=== PATIENT | male | born 1970 | race African-American/Black ===

== ENCOUNTER 2022-02-17 08:08 | Outpatient (REF) | payer OTHER, SELFPAY ==
[2022-02-17 09:30] LABS: Alanine Aminotransferase 48 U/L (0-40); Albumin Level 4.4 g/dL (3.5-5.0); Alkaline Phosphatase 42 U/L (39-117); Anion Gap 14 (12-20); Aspartate Amino Transferase 28 U/L (5-37); Bilirubin Total 0.2 mg/dL (0.0-1.0); Blood Urea Nitrogen 22 mg/dL (9-16); Calcium 9.4 mg/dL (8.4-10.2); Carbon Dioxide 28 mmol/L (22-29); Chloride 100 mmol/L (96-108); Cholesterol 185 mg/dL; Estimated Glomerular Filt Rate > 60; Glucose Fasting 106 mg/dL (60-99); HDL Cholesterol 31 mg/dL; Potassium 4.4 mmol/L (3.3-5.1); Sodium 138 mmol/L (135-145); Total Protein 7.4 g/dL (6.5-8.0); Triglycerides 481 mg/dL
[2022-02-17 10:43] LABS: Creatinine Urine 239.44 mg/dL; Microalbum/Creatinine Ratio Ur 4.1 ug/mg cr
== END 2022-02-17 08:09 | disposition home or self-care (01) ==
LOC: HO.LAB 08:08
PROVIDERS: PCP Internal Medicine; Visit Provider Internal Medicine
DX: Z00.00 Encounter for general adult medical examination without abnormal findings (principal); E78.5 Hyperlipidemia, unspecified; E11.9 Type 2 diabetes mellitus without complications
CPT/HCPCS: 36415; 80053; 80061; 82043

== ENCOUNTER 2022-07-13 08:27 | Outpatient (REF) | payer OTHER, SELFPAY ==
--- NOTE | ~2022-07-13 | XR_ITS ---
EXAMINATION: XR HIP, LEFT , CLINICAL INFORMATION: Pain COMPARISON: None available at the time of this dictation. TECHNIQUE: Frontal and lateral views of the hip acquired. , AP pelvis FINDINGS: There is no evidence of acute fracture or dislocation. There are mild degenerative arthritic changes of the hip evident by sclerotic changes of the acetabular roof and narrowing of the joint space. Mild degenerative changes of the symphysis pubis. Mild degenerative changes of the SI joints. Adjacent pubic rami are intact. Surrounding soft tissues are unremarkable. XR/XR hip LT min 2V IMPRESSION: Mild degenerative osteoarthritis. No radiographic evidence of a fracture. No radiographic evidence of osteolytic bone lesion. .
[2022-07-13 09:47] LABS: Estimated Average Glucose 143 mg/dL; Hemoglobin A1c % 6.6 %
[2022-07-13 10:18] LABS: Alanine Aminotransferase 55 U/L (0-40); Albumin Level 4.5 g/dL (3.5-5.0); Alkaline Phosphatase 52 U/L (39-117); Anion Gap 14 (12-20); Aspartate Amino Transferase 32 U/L (5-37); Bilirubin Total 0.3 mg/dL (0.0-1.0); Blood Urea Nitrogen 18 mg/dL (9-16); Calcium 9.7 mg/dL (8.4-10.2); Carbon Dioxide 28 mmol/L (22-29); Chloride 103 mmol/L (96-108); Cholesterol 144 mg/dL; Estimated Glomerular Filt Rate > 60; Glucose Fasting 100 mg/dL (60-99); HDL Cholesterol 38 mg/dL; LDL Cholesterol Calculated 78 mg/dl; Potassium 4.7 mmol/L (3.3-5.1); Sodium 140 mmol/L (135-145); Total Protein 7.3 g/dL (6.5-8.0); Triglycerides 142 mg/dL
[2022-07-13 11:10] LABS: Creatinine Urine 167.34 mg/dL; Microalbum/Creatinine Ratio Ur 4.7 ug/mg cr
== END 2022-07-13 08:28 | disposition home or self-care (01) ==
LOC: HO.LAB 08:27
PROVIDERS: PCP Internal Medicine; Visit Provider Internal Medicine
DX: M25.552 Pain in left hip (principal); E11.9 Type 2 diabetes mellitus without complications; E78.5 Hyperlipidemia, unspecified; E11.40 Type 2 diabetes mellitus with diabetic neuropathy, unspecified; I10 Essential (primary) hypertension
CPT/HCPCS: 36415; 73502; 80053; 80061; 82043; 83036

== ENCOUNTER 2022-11-17 08:06 | Outpatient (AMB) | payer OTHER, SELFPAY ==
--- NOTE | 2022-11-17 08:23 | MHC.PC.OV ---
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 Accompanied by: Self / Same As Patient Allergies lisinopril Adverse Reaction (Severe, Verified 11/17/22 08:49) rash, cough, itchy throat Medication List - Last Reconciled 11/17/22 by Viji Chacon MD amlodipine 5 mg PO DAILY 90 days atorvastatin 10 mg PO DAILY 90 days blood sugar diagnostic (FreeStyle Lite Strips) As directed lancets (FreeStyle Lancets) As directed metformin ER 500 mg PO BID 90 days miscellaneous medical supply (Blood Pressure Cuff) As directed omeprazole 20 mg PO DAILY 90 days Tobacco use date assessed: 07/13/22 Dental Screening Dental Screen Date: 11/17/22 Did you have a dental visit in the last 12 months?: No Did you have a dental problem in the last 6 months where you did not have access to dental care?: No Was dental information given to patient?: Yes HPI HPI Comments History of Present Illness Details This is a 52-year-old male with diabetes mellitus type 2, hypertension, hyperlipidemia and chronic GERD that comes today for follow-up on recent labs. A1c within goal. Blood pressure borderline normal to elevated today and he has not take his amlodipine yet. Blood pressure will be recheck in 3 weeks by nurse navigator. Last LDL was within goal and lipid panel will be repeated for the next office visit. GERD stable with PPIs as needed. No chest pain or shortness of breath. [facility] Surgical History History of hand surgery Family History Mother Alzheimer disease Osteoporosis Father Diabetes Social History Housing: House Alcohol intake: never Patient Tobacco Use Status: Never used Tobacco e-Cigarette/Vaping Use: Never Used Second Hand Smoke Exposure: No service: No Current occupational status: employed Current occupational exposures/hazards: No Cognitive needs: No Hearing needs: No Vision needs: Yes Questionnaire Thrive Questionnaire Date Thrive assessed: 07/13/22 YOLIS-7 AMB Questionnaire YOLIS-7 Date YOLIS - 7 assessed: 07/13/22 Source: Developed by Drs. Stuart Walton, Amanda Mcwilliams, Marcel Mcmahon and colleagues, with an educational concepcion from [employer]. Review of Systems Const All systems reviewed & are unremarkable except as noted in HPI and below Eyes Reports no additional complaints, Denies change in vision and Denies other visual disturbances Card Denies chest pain at rest, Denies chest pain with activity, Denies edema, Denies irregular heart rhythm, Denies claudication, Denies dyspnea, Denies dyspnea on exertion, Denies orthopnea, Denies paroxysmal nocturnal dyspnea and Denies slow heart rate Resp Denies cough, Denies dyspnea and Denies dyspnea on exertion GI Denies abdominal pain, Denies change in bowel habits, Denies excessive flatus, Denies nausea and Denies vomiting Denies urinary hesitancy, Denies urinary incontinence and Denies urinary urgency Musc Denies abnormal gait, Denies atrophy, Denies deformity and Denies limited range of motion Skin/Breast Denies bleeding lesions, Denies changing lesions and Denies rash Neuro Denies abnormal gait and Denies lack of coordination Physical exam (Primary Care) Vital Signs: Last Vital Signs BP 140/90 H 11/17/22 08:25 BMI result Body Mass Index 31.2 Tobacco/Smoking Status: Tobacco use Status Tobacco use date assessed 07/13/22 11/17/22 08:24 Patient Tobacco Use Status Never used Tobacco 11/17/22 08:24 e-Cigarette/Vaping Use Never Used 11/17/22 08:24 Thrive Assessment: Date of Thrive Assessment Date Thrive assessed 07/13/22 11/17/22 08:24 Eyes General: appearance normal, both eyes and all related structures Eyelids: Yes eyelids normal Conjunctivae: conjunctivae normal Neck Neck: Yes normal visual inspection and Yes supple Resp Effort & Inspection: normal respiratory effort Auscultation: clear to auscultation bilaterally Cardio Jugular venous distension: no JVD Rate: regular rate Rhythm: regular rhythm Heart sounds: S1 normal heart sound present and S2 normal heart sound present Extrem General: Yes full ROM Results AMB Hemoglobin A1c AMB Hemoglobin A1c 6.6 % Last Edit by HUI Tarango on 11/17/22 08:32 Results Reviewed Results Reviewed: Laboratory Last Values Hgb A1c (Clinic) 6.6 % (4.0-6.0) H 11/17/22 08:29 Assessment and Plan Assessment & Plan (1) Diabetes mellitus: Code(s): E11.9 - Type 2 diabetes mellitus without complications Plan: Continue metformin. A1c goal is equal or less than 7%. (2) Essential hypertension: Code(s): I10 - Essential (primary) hypertension Plan: Continue amlodipine. Blood pressure goal is equal or less than 130/80. (3) Chronic GERD: Code(s): K21.9 - Gastro-esophageal reflux disease without esophagitis Plan: Continue PPIs as needed (4) Hyperlipidemia LDL goal <70: Code(s): E78.5 - Hyperlipidemia, unspecified Plan: Continue statins. LDL goal is less than 70. Orders: Orders Comprehensive Met. Panel 4 Months E78.5 - Hyperlipidemia, unspecified Lipid Panel 4 Months E78.5 - Hyperlipidemia, unspecified Microalbumin, Random (w Creat) 4 Months E11.9 - Type 2 diabetes mellitus without complications AMB Hemoglobin A1c Today E11.9 - Type 2 diabetes mellitus without complications Coding Level of Care Code Est Pt Level 4 (40798) Diagnoses Diabetes mellitus E11.9 Essential hypertension I10 Chronic GERD K21.9 Hyperlipidemia LDL goal <70 E78.5 Time Spent (min) 23
[2022-11-17 08:25] VITALS: BP 140/90; BMI 31.2
[2022-11-17 10:42] VITALS: BP 140/90
== END 2022-11-17 08:59 | disposition home or self-care (01) ==
PROVIDERS: PCP Internal Medicine; Visit Provider Internal Medicine
DX: E11.9 Type 2 diabetes mellitus without complications (principal); I10 Essential (primary) hypertension; K21.9 Gastro-esophageal reflux disease without esophagitis; E78.5 Hyperlipidemia, unspecified
CPT/HCPCS: 83036; 99214

== ENCOUNTER 2023-02-22 07:45 | Outpatient (REF) | payer OTHER, SELFPAY ==
[2023-02-22 08:57] LABS: Alanine Aminotransferase 50 U/L (0-40); Albumin Level 4.5 g/dL (3.5-5.0); Alkaline Phosphatase 41 U/L (39-117); Anion Gap 15 (12-20); Aspartate Amino Transferase 32 U/L (5-37); Bilirubin Total 0.4 mg/dL (0.0-1.0); Blood Urea Nitrogen 14 mg/dL (9-16); Calcium 9.6 mg/dL (8.4-10.2); Carbon Dioxide 27 mmol/L (22-29); Chloride 104 mmol/L (96-108); Cholesterol 142 mg/dL (<200); Estimated Glomerular Filt Rate > 60; Glucose Random 104 mg/dL (60-115); HDL Cholesterol 39 mg/dL (>40); LDL Cholesterol Calculated 71 mg/dL (<100); Potassium 4.1 mmol/L (3.3-5.1); Sodium 142 mmol/L (135-145); Total Protein 7.6 g/dL (6.5-8.0); Triglycerides 163 mg/dL (<150)
[2023-02-22 11:42] LABS: Creatinine Urine 133.83 mg/dL; Microalbum/Creatinine Ratio Ur 4.4 ug/mg cr (<30)
== END 2023-02-22 07:46 | disposition home or self-care (01) ==
LOC: HO.LAB 07:45
PROVIDERS: PCP Internal Medicine; Visit Provider Internal Medicine
DX: E78.5 Hyperlipidemia, unspecified (principal); E11.9 Type 2 diabetes mellitus without complications
CPT/HCPCS: 36415; 80053; 80061; 82043; 82570

== ENCOUNTER 2023-02-28 07:09 | Outpatient (AMB) | payer OTHER, SELFPAY ==
[2023-02-28 07:36] VITALS: BP 136/82; BMI 30.6
--- NOTE | 2023-02-28 07:36 | MHC.PC.OV ---
Vital Signs 02/28/23 07:36 Height 5 ft 4 in Weight 178 lb BMI 30.6 BP 136/82 Blood Pressure Location Lt brachial Position Sitting Intake Visit Reasons: PHYSICAL Intake Note: Patient here for a physical exam [employer] Director Required: No Accompanied by: Self / Same As Patient Allergies lisinopril Adverse Reaction (Severe, Verified 02/28/23 07:53) rash, cough, itchy throat Medication List - Last Reconciled 02/28/23 by Viji Chacon MD amlodipine 5 mg PO DAILY 90 days atorvastatin 10 mg PO DAILY 90 days blood sugar diagnostic (FreeStyle Lite Strips) As directed lancets (FreeStyle Lancets) As directed metformin ER 500 mg PO BID 90 days miscellaneous medical supply (Blood Pressure Cuff) As directed omeprazole 20 mg PO DAILY 90 days Tobacco use date assessed: 07/13/22 Dental Screening Dental Screen Date: 02/28/23 Did you have a dental visit in the last 12 months?: No Did you have a dental problem in the last 6 months where you did not have access to dental care?: No Was dental information given to patient?: Patient has dentist HPI HPI Comments History of Present Illness Details This is a 52-year-old male with diabetes mellitus type 2 that comes for his physical exam. A1c within goal. LDL close to goal. Last diabetic eye exam was a year ago. Has never had a colonoscopy and does not have any family history of colon cancer. Complains of diffuse joint pain with no fever or rash and will be referred to rheumatology. [facility] Surgical History History of hand surgery Family History Mother Alzheimer disease Osteoporosis Father Diabetes Social History Housing: House Alcohol intake: never Patient Tobacco Use Status: Never used Tobacco e-Cigarette/Vaping Use: Never Used Second Hand Smoke Exposure: No service: No Current occupational status: employed Current occupational exposures/hazards: No Cognitive needs: No Hearing needs: No Vision needs: Yes Questionnaire Thrive Questionnaire Date Thrive assessed: 07/13/22 YOLIS-7 AMB Questionnaire YOLIS-7 Date YOLIS - 7 assessed: 07/13/22 Source: Developed by Drs. Stuart Walton, Amanda Mcwilliams, Marcel Mcmahon and colleagues, with an educational concepcion from [employer]. Review of Systems Const All systems reviewed & are unremarkable except as noted in HPI and below Eyes Reports no additional complaints, Denies change in vision and Denies other visual disturbances Card Denies chest pain at rest, Denies chest pain with activity, Denies edema, Denies irregular heart rhythm, Denies claudication, Denies dyspnea, Denies dyspnea on exertion, Denies orthopnea, Denies paroxysmal nocturnal dyspnea and Denies slow heart rate Resp Denies cough, Denies dyspnea and Denies dyspnea on exertion GI Denies abdominal pain, Denies change in bowel habits, Denies excessive flatus, Denies nausea and Denies vomiting Denies urinary hesitancy, Denies urinary incontinence and Denies urinary urgency Musc Denies abnormal gait, Denies atrophy, Denies deformity, Reports arthralgias and Denies limited range of motion Skin/Breast Denies bleeding lesions, Denies changing lesions and Denies rash Neuro Denies abnormal gait, Denies behavioral changes, Denies confusion and Denies lack of coordination Psych Denies behavioral changes and Denies confusion Physical exam (Primary Care) Vital Signs: Last Vital Signs BP 136/82 02/28/23 07:36 BMI result Body Mass Index 30.6 Tobacco/Smoking Status: Tobacco use Status Tobacco use date assessed 07/13/22 02/28/23 07:39 Patient Tobacco Use Status Never used Tobacco 02/28/23 07:39 e-Cigarette/Vaping Use Never Used 02/28/23 07:39 Thrive Assessment: Date of Thrive Assessment Date Thrive assessed 07/13/22 02/28/23 07:39 Const General: No confusion Orientation/consciousness: patient oriented x3 and No confusion HENMT Head: Yes normal to inspection, Yes normocephalic and Yes atraumatic Ears: external ears normal Eyes General: appearance normal, both eyes and all related structures Eyelids: Yes eyelids normal Conjunctivae: conjunctivae normal Neck Neck: Yes normal visual inspection and Yes supple Resp Effort & Inspection: normal respiratory effort Auscultation: clear to auscultation bilaterally Cardio Jugular venous distension: no JVD Rate: regular rate Rhythm: regular rhythm Heart sounds: S1 normal heart sound present and S2 normal heart sound present GI Inspection: Yes normal to inspection Palpation (GI): Soft to palpation and nontender Auscultation: normal bowel sounds Skin General skin exam: no rashes or lesions noted Neuro General: patient oriented x3, no focal motor deficits and No confusion Extrem General: Yes full ROM Psych Appearance: grossly normal Office Procedures Flu Questionnaire Does the patient have a severe egg allergy?: No Results AMB Hemoglobin A1c AMB Hemoglobin A1c 6.6 % Last Edit by HUI Tarango on 02/28/23 07:50 Immunizations flu vacc [id number] 6mos up(PF) 60 mcg(15 mcgx4)/0.5 mL IM syringe Performing Provider: Viji Chacon MD [facility] Documented (not given) by: HUI Tarango on 02/28/23 07:42 Reason Not Given: Patient Refused Results Reviewed Results Reviewed: Laboratory Last Values Hgb A1c (Clinic) 6.6 % (4.0-6.0) H 02/28/23 07:42 Assessment and Plan Assessment & Plan (1) Physical exam: Code(s): Z00.00 - Encounter for general adult medical examination without abnormal findings Plan: Repeat in a year. (2) Diabetes mellitus: Code(s): E11.9 - Type 2 diabetes mellitus without complications Plan: Continue metformin. A1c goal is equal or less than 7%. Orders: Orders AMB Hemoglobin A1c Today E11.9 - Type 2 diabetes mellitus without complications Comprehensive [place]. Panel Fast 4 Months Z00.00 - Encounter for general adult medical examination without abnormal findings Influenza [id number] Immunization Today Z23 - Encounter for immunization Lipid Panel 4 Months E78.5 - Hyperlipidemia, unspecified Microalbumin, Random (w Creat) 4 Months E11.9 - Type 2 diabetes mellitus without complications Vitamin D 25-OH Total 4 Months E55.9 - Vitamin D deficiency, unspecified Referrals Cologuard Test Z12.11 - Encounter for screening for malignant neoplasm of colon, Z12.12 - Encounter for screening for malignant neoplasm of rectum Ophthalmology Referral E11.9 - Type 2 diabetes mellitus without complications Rheumatology Referral M25.50 - Pain in unspecified joint Coding Level of Care Code Est Pt Prev Care 40-64y(08190) Diagnoses Physical exam Z00.00 Diabetes mellitus E11.9 Time Spent (min) 35
== END 2023-02-28 08:01 | disposition home or self-care (01) ==
PROVIDERS: Visit Provider Internal Medicine
DX: Z00.00 Encounter for general adult medical examination without abnormal findings (principal); E11.9 Type 2 diabetes mellitus without complications
CPT/HCPCS: 83036; 99396

== ENCOUNTER 2023-05-16 10:45 | Outpatient (REF) | payer OTHER, SELFPAY ==
--- NOTE | ~2023-05-16 | XR_ITS ---
STUDY: Bilateral hands, lumbar spine, SI series INDICATION: Bilateral hand and back pain COMPARISON: None TECHNIQUE: 4 view right hand, 5 view left hand, 5 view lumbar spine, three-view SI series FINDINGS: Right hand: Mild degenerative change first carpometacarpal joint. These mild interphalangeal joint space narrowings. Radiocarpal joint space narrowing and sclerosis. Alignment maintained. No fracture or dislocation. No bony erosions. No focal soft tissue swelling. Left hand: Diffuse interphalangeal joint space narrowings and mild degenerative changes first carpometacarpal joint. Radiocarpal sclerosis and joint space narrowing. No fracture, dislocation or bony erosions. Alignment is maintained. Lumbar spine: 5 lumbar type vertebral bodies are maintained in height. Lumbar lordotic straightening. Mild L5-S1 disc space narrowing. No spondylolysis or spondylolisthesis pedicles are intact. SI series: Very mild SI sclerosis left and inferior right joints, better appreciated on lumbar spine series. No hip joint narrowings. No fracture or dislocation. XR/XR hand wrist RT IMPRESSION: Degenerative changes bilateral hands. Lumbar lordotic straightening and mild L5-S1 disc space narrowing. Very mild, slightly asymmetric bilateral SI sclerosis.
--- NOTE | ~2023-05-16 | XR_ITS ---
STUDY: Bilateral hands, lumbar spine, SI series INDICATION: Bilateral hand and back pain COMPARISON: None TECHNIQUE: 4 view right hand, 5 view left hand, 5 view lumbar spine, three-view SI series FINDINGS: Right hand: Mild degenerative change first carpometacarpal joint. These mild interphalangeal joint space narrowings. Radiocarpal joint space narrowing and sclerosis. Alignment maintained. No fracture or dislocation. No bony erosions. No focal soft tissue swelling. Left hand: Diffuse interphalangeal joint space narrowings and mild degenerative changes first carpometacarpal joint. Radiocarpal sclerosis and joint space narrowing. No fracture, dislocation or bony erosions. Alignment is maintained. Lumbar spine: 5 lumbar type vertebral bodies are maintained in height. Lumbar lordotic straightening. Mild L5-S1 disc space narrowing. No spondylolysis or spondylolisthesis pedicles are intact. SI series: Very mild SI sclerosis left and inferior right joints, better appreciated on lumbar spine series. No hip joint narrowings. No fracture or dislocation. XR/XR hand wrist LT IMPRESSION: Degenerative changes bilateral hands. Lumbar lordotic straightening and mild L5-S1 disc space narrowing. Very mild, slightly asymmetric bilateral SI sclerosis.
--- NOTE | ~2023-05-16 | XR_ITS ---
STUDY: Bilateral hands, lumbar spine, SI series INDICATION: Bilateral hand and back pain COMPARISON: None TECHNIQUE: 4 view right hand, 5 view left hand, 5 view lumbar spine, three-view SI series FINDINGS: Right hand: Mild degenerative change first carpometacarpal joint. These mild interphalangeal joint space narrowings. Radiocarpal joint space narrowing and sclerosis. Alignment maintained. No fracture or dislocation. No bony erosions. No focal soft tissue swelling. Left hand: Diffuse interphalangeal joint space narrowings and mild degenerative changes first carpometacarpal joint. Radiocarpal sclerosis and joint space narrowing. No fracture, dislocation or bony erosions. Alignment is maintained. Lumbar spine: 5 lumbar type vertebral bodies are maintained in height. Lumbar lordotic straightening. Mild L5-S1 disc space narrowing. No spondylolysis or spondylolisthesis pedicles are intact. SI series: Very mild SI sclerosis left and inferior right joints, better appreciated on lumbar spine series. No hip joint narrowings. No fracture or dislocation. XR/XR lumbar spine 4V min IMPRESSION: Degenerative changes bilateral hands. Lumbar lordotic straightening and mild L5-S1 disc space narrowing. Very mild, slightly asymmetric bilateral SI sclerosis.
--- NOTE | ~2023-05-16 | XR_ITS ---
STUDY: Bilateral hands, lumbar spine, SI series INDICATION: Bilateral hand and back pain COMPARISON: None TECHNIQUE: 4 view right hand, 5 view left hand, 5 view lumbar spine, three-view SI series FINDINGS: Right hand: Mild degenerative change first carpometacarpal joint. These mild interphalangeal joint space narrowings. Radiocarpal joint space narrowing and sclerosis. Alignment maintained. No fracture or dislocation. No bony erosions. No focal soft tissue swelling. Left hand: Diffuse interphalangeal joint space narrowings and mild degenerative changes first carpometacarpal joint. Radiocarpal sclerosis and joint space narrowing. No fracture, dislocation or bony erosions. Alignment is maintained. Lumbar spine: 5 lumbar type vertebral bodies are maintained in height. Lumbar lordotic straightening. Mild L5-S1 disc space narrowing. No spondylolysis or spondylolisthesis pedicles are intact. SI series: Very mild SI sclerosis left and inferior right joints, better appreciated on lumbar spine series. No hip joint narrowings. No fracture or dislocation. XR/XR sacroiliac joint min 3V IMPRESSION: Degenerative changes bilateral hands. Lumbar lordotic straightening and mild L5-S1 disc space narrowing. Very mild, slightly asymmetric bilateral SI sclerosis.
[2023-05-16 12:03] LABS: MANUAL DIFF FLAG NO
[2023-05-16 12:45] LABS: Basophils Percent Auto 0.8 % (0-2); Eosinophils Absolute Auto 0.2 X10*3/uL (0.0-0.4); Hematocrit 47.5 % (42.0-52.0); Hemoglobin 15.6 g/dl (14.0-18.0); Imm Gran Abs Auto 0.01 X10*3/uL (0.00-0.03); Imm Gran Pct Auto 0.2 % (0.0-0.4); Lymphocytes Absolute Auto 2.6 X10*3/uL (1.2-4.9); Lymphocytes Percent Auto 52.6 % (20-40); Mean Corpuscular HGB Conc 32.8 g/dl (31.0-36.0); Mean Corpuscular Hemoglobin 28.4 pg (27.0-33.0); Mean Corpuscular Volume 86.4 fL (80.0-98.0); Mean Platelet Volume 9.2 fL (9.4-12.4); Monocytes Absolute Auto 0.3 X10*3/uL (0.1-1.2); Monocytes Percent Auto 6.6 % (2-11); Neutrophils Absolute Auto 1.8 x10*3/uL (2.0-8.3); Neutrophils Percent Auto 35.8 % (45-73); Platelet Count 282 X10*3/uL (160-400); Red Cell Distribution Width 12.7 % (11.0-16.0)
[2023-05-16 13:07] LABS: Alanine Aminotransferase 54 U/L (0-40); Albumin Level 4.8 g/dL (3.5-5.0); Alkaline Phosphatase 49 U/L (39-117); Anion Gap 13 (12-20); Aspartate Amino Transferase 34 U/L (5-37); Bilirubin Total 0.3 mg/dL (0.0-1.0); Blood Urea Nitrogen 19 mg/dL (9-16); C Reactive Protein < 0.10 mg/dL (< or = 0.50); Calcium 9.9 mg/dL (8.4-10.2); Carbon Dioxide 30 mmol/L (22-29); Chloride 102 mmol/L (96-108); Estimated Glomerular Filt Rate > 60; Glucose Random 95 mg/dL (60-115); Potassium 4.1 mmol/L (3.3-5.1); Sodium 141 mmol/L (135-145); Total Protein 8.2 g/dL (6.5-8.0)
[2023-05-16 13:10] LABS: Rheumatoid Factor < 13.0 IU/mL (<15.0)
[2023-05-16 13:30] LABS: Erythrocyte Sedimentation Rate 2 MM/HR (0-15)
[2023-05-17 12:49] LABS: Lyme Abs Screen <0.90 index
[2023-05-17 13:00] LABS: HBS Num1 13.99 mIU/mL (0-7.99); HBc Num1 0.08 S/CO (0.00-0.79); HBsAGNum1 0.33 S/CO (0.00-0.99); Hepatitis A Antibody IgM 0.18 Index (0-0.79); Hepatitis B Core Antibody Nonreactive (Nonreactive); Hepatitis B Surface Antigen Negative (Negative); ~HepC Num1 0.08 S/CO (0.00-0.79); ~Hepatitis A Antibody IgM Nonreactive (Nonreactive); ~Hepatitis B Surface Antibody REACTIVE (Nonreactive); ~Hepatitis C Antibody Nonreactive (Nonreactive)
[2023-05-18 20:24] LABS: TS Negative Control Passed; TS Panel A 0; TS Panel B 0; TS Positive Control Passed; TSpotTB Negative (Negative)
[2023-05-19 12:08] LABS: Cyclic Citrullinated Peptide <16 UNITS
[2023-05-19 12:23] LABS: Anti Nuclear Antibody Screen NEGATIVE (NEGATIVE)
[2023-05-19 15:04] LABS: Prot Elec - Albumin 4.7 g/dL (3.8-4.8); Prot Elec - Alpha1 0.2 g/dL (0.2-0.3); Prot Elec - Alpha2 0.7 g/dL (0.5-0.9); Prot Elec - Beta 1 0.5 g/dL (0.4-0.6); Prot Elec - Beta 2 0.5 g/dL (0.2-0.5); Prot Elec - Gamma 1.4 g/dL (0.8-1.7)
[2023-05-20 13:03] LABS: IgA 217 mg/dL (47-310); IgG 1524 mg/dL (600-1640); IgM 33 mg/dL (50-300)
[2023-05-21 16:42] LABS: HLA B27 Negative (Negative)
== END 2023-05-16 10:46 | disposition home or self-care (01) ==
LOC: HO.LAB 10:45
PROVIDERS: PCP Internal Medicine; Visit Provider Student in an Organized Health Care Education/Training Program
DX: Z11.59 Encounter for screening for other viral diseases (principal); Z11.7 Encounter for testing for latent tuberculosis infection; M45.9 Ankylosing spondylitis of unspecified sites in spine; M25.50 Pain in unspecified joint
CPT/HCPCS: 36415; 72110; 72202; 73110; 73130; 80053; 82784; 84165; 85025; 85652; 86038; 86140; 86200; 86334; 86431; 86481; 86617; 86618; 86704; 86706; 86709; 86803; 86812; 87340; 99202

== ENCOUNTER 2023-05-16 10:45 | Outpatient (AMB) | payer OTHER, SELFPAY ==
--- NOTE | 2023-05-16 10:47 | MHC.OFFVIS ---
Intake Vital Signs 05/16/23 10:48 Height 5 ft 4 in Weight 180 lb 15.992 oz BMI 31.1 BP 100/80 Blood Pressure Location Rt brachial Position Sitting Pulse 71 Pulse Source Pulse Oximeter Temp 97 F Temp Source Skin Pulse Oximetry (%) 97 Oxygen Delivery Method Room Air Intake Visit Reasons: Joint Pain Intake Note: New patient presents today for consult. C/o polyarthralgia (back pain, left wrist pain) Pain started approx 1 year or so. Has tried OTC arthritis pain med Inspector Watch Assembly Required: Yes Inspector Watch Assembly Language: Customer Resource Specialist Name: Mayra [id number] Information Interpreted: clinical only Accompanied by: Self / Same As Patient Allergies lisinopril Adverse Reaction (Severe, Verified 05/16/23 10:47) rash, cough, itchy throat Medication List - Last Reconciled 05/16/23 by Mitesh Kenny MD amlodipine 5 mg PO DAILY 90 days atorvastatin 10 mg PO DAILY 90 days blood sugar diagnostic (FreeStyle Lite Strips) As directed lancets (FreeStyle Lancets) As directed metformin ER 500 mg PO BID 90 days miscellaneous medical supply (Blood Pressure Cuff) As directed omeprazole 20 mg PO DAILY 90 days HPI HPI Comments History of Present Illness Details This is a 53-year-old male who presents for evaluation of multiple joint pain. He states that for about 6 years he has been having left wrist pain. 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 He states that his job is not quite physical. He works at night. He takes ibuprofen 400 mg 3-4 days a week as needed for his joint pain. He is right-handed. He states that for the last year has been having lower back pain more towards the left. Pain is also worse with activity. He denies any morning stiffness. Ibuprofen also helps. He uses a belt for his back pain that improves his back when he tightens it. [facility] Surgical History History of hand surgery Family History Mother Alzheimer disease Osteoporosis Father Diabetes Social History Household Members: Spouse and Children Housing: House Alcohol intake: former Patient Tobacco Use Status: Never used Tobacco e-Cigarette/Vaping Use: Never Used Second Hand Smoke Exposure: No service: No Current occupational status: employed Current occupation: Maintenance Current occupational exposures/hazards: No Cognitive needs: No Hearing needs: No Vision needs: Yes Review of Systems Const Denies weight loss Musc Reports back pain, Reports arthralgias, Reports joint swelling and Denies stiffness Physical Exam Vital Signs: Last Vital Signs Temp 97 F 05/16/23 10:48 Pulse 71 05/16/23 10:48 BP 100/80 05/16/23 10:48 Pulse Ox 97 05/16/23 10:48 Oxygen Delivery Method Room Air 05/16/23 10:48 BMI result Body Mass Index 31.1 Const General: cooperative, healthy appearing and comfortable Nutritional Appearance: obese Orientation/consciousness: patient oriented x3 Limitations: no limitations HEENT Head: Yes normocephalic and Yes atraumatic Resp Effort & Inspection: normal respiratory effort and able to speak in complete sentences Auscultation: clear to auscultation bilaterally Cardio Rate: regular rate Rhythm: regular rhythm Skin General skin exam: no rashes or lesions noted Neuro General: patient oriented x3 Extrem Other: Mild left wrist dorsal swelling, more radially. Tenderness to palpation and pain with flexion-extension No active synovitis otherwise Normal nailfold capillaroscopy Could not elicit any back tenderness Negative straight leg raise test bilaterally Negative ANDERS test bilaterally Normal lateral flexion test Assessment & Plan Assessment & Plan (1) Polyarthralgia: Code(s): M25.50 - Pain in unspecified joint Plan: This is a 53-year-old male who presents for evaluation of polyarthralgia. Left wrist pain for about 6 year and 1 year history of low back pain. On exam he has mild left wrist swelling. Will order comprehensive serology to screen for underlying autoimmune rheumatic disease. Check x-rays of involved joints. Follow-up in 1 month Plan I spent [id number] reviewing patient's chart, evaluating patient, ordering diagnostic workup, counseling patient and documenting in the chart Orders: Orders Comprehensive Met. Panel Today M25.50 - Pain in unspecified joint C Reactive Protein Today M25.50 - Pain in unspecified joint Erythrocyte Sedimentation Rate Today M25.50 - Pain in unspecified joint XR lumbar spine 4V min Today M25.50 - Pain in unspecified joint XR sacroiliac joint min 3V Today M25.50 - Pain in unspecified joint HLA B27 Today M45.9 - Ankylosing spondylitis of unspecified sites in spine Complete Blood Count Auto Diff Today M25.50 - Pain in unspecified joint Hepatitis A,B,C Profile Today Z11.59 - Encounter for screening for other viral diseases Immunofixation Pnl, Serum Today M25.50 - Pain in unspecified joint Protein Electrophoresis, Serum Today M25.50 - Pain in unspecified joint T Spot TB Today Z11.7 - Encounter for testing for latent tuberculosis infection NAHED Reflex Titer and Pattern Today M25.50 - Pain in unspecified joint Rheumatoid Factor Today M25.50 - Pain in unspecified joint Cyclic Citrullinated Peptide Today M25.50 - Pain in unspecified joint XR hand wrist LT Today M25.50 - Pain in unspecified joint XR hand wrist RT Today M25.50 - Pain in unspecified joint Lyme IgG/IgM w/reflex to WB Today M25.50 - Pain in unspecified joint Coding Level of Care Code New Pt Level 4 (75540) Diagnoses Polyarthralgia M25.50
[2023-05-16 10:48] VITALS: BP 100/80; PULSE 71; TEMP 36.1; O2SAT 97; BMI 31.1
== END 2023-05-16 11:36 | disposition home or self-care (01) ==
PROVIDERS: PCP Internal Medicine; Visit Provider Student in an Organized Health Care Education/Training Program
DX: M25.50 Pain in unspecified joint (principal)
CPT/HCPCS: 99204

== ENCOUNTER 2023-06-27 14:26 | Outpatient (AMB) | payer OTHER, SELFPAY ==
--- NOTE | 2023-06-27 14:34 | A.OFFVIS_ITS ---
Intake Vital Signs 06/27/23 14:35 Height 5 ft 4 in Weight 183 lb 6.793 oz BMI 31.5 BP 126/70 Blood Pressure Location Rt brachial Position Sitting Pulse 78 Pulse Source Pulse Oximeter Pulse Oximetry (%) 96 Oxygen Delivery Method Room Air Intake Visit Reasons: polyarthralgia Intake Note: Patient last seen 05/16/23 presents today for follow up and test results. Dimensional Inspector Required: Yes Dimensional Inspector Name: April Irving (Medical Assist Accompanied by: Self / Same As Patient Allergies lisinopril Adverse Reaction (Severe, Verified 06/27/23 14:40) rash, cough, itchy throat Medication List - Last Reconciled 06/27/23 by Mitesh Kenny MD amlodipine 5 mg PO DAILY 90 days atorvastatin 10 mg PO DAILY 90 days blood sugar diagnostic (FreeStyle Lite Strips) As directed lancets (FreeStyle Lancets) As directed metformin ER 500 mg PO BID 90 days miscellaneous medical supply (Blood Pressure Cuff) As directed omeprazole 20 mg PO DAILY 90 days HPI HPI Comments 2 History of Present Illness Details Patient returns for follow-up after completion of his diagnostic workup. Continues to feel about the same Initial history: This is a 53-year-old male who presents for evaluation of multiple joint pain. He states that for about 6 years he has been having left wrist pain. 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 He states that his job is not quite physical. He works at night. He takes ibuprofen 400 mg 3-4 days a week as needed for his joint pain. He is right-handed. He states that for the last year has been having lower back pain more towards the left. Pain is also worse with activity. He denies any morning stiffness. Ibuprofen also helps. He uses a belt for his back pain that improves his back when he tightens it. [facility] Surgical History History of hand surgery Family History Mother Alzheimer disease Osteoporosis Father Diabetes Social History Household Members: Spouse and Children Housing: House Alcohol intake: former Patient Tobacco Use Status: Never used Tobacco e-Cigarette/Vaping Use: Never Used Second Hand Smoke Exposure: No service: No Current occupational status: employed Current occupation: Maintenance Current occupational exposures/hazards: No Cognitive needs: No Hearing needs: No Vision needs: Yes Review of Systems Const Denies weight loss Musc Reports back pain, Reports arthralgias and Denies stiffness Physical Exam Vital Signs: Last Vital Signs Pulse 78 06/27/23 14:35 BP 126/70 06/27/23 14:35 Pulse Ox 96 06/27/23 14:35 Oxygen Delivery Method Room Air 06/27/23 14:35 BMI result Body Mass Index 31.5 Const General: cooperative, healthy appearing and comfortable Nutritional Appearance: obese Orientation/consciousness: patient oriented x3 Limitations: no limitations HEENT Head: Yes normocephalic and Yes atraumatic Resp Effort & Inspection: normal respiratory effort and able to speak in complete sentences Auscultation: clear to auscultation bilaterally Cardio Rate: regular rate Rhythm: regular rhythm Skin General skin exam: no rashes or lesions noted Neuro General: patient oriented x3 Extrem Other: Mild left wrist dorsal swelling, more radially but no tenderness to palpation. No pain with flexion and extension No active synovitis otherwise Normal nailfold capillaroscopy Could not elicit any back tenderness Negative straight leg raise test bilaterally Negative ANDERS test bilaterally Normal lateral flexion test Assessment & Plan Assessment & Plan (1) Polyarthralgia: Code(s): M25.50 - Pain in unspecified joint Plan: This is a 53-year-old male who presents for evaluation of polyarthralgia. Upon evaluation I do not see any signs of autoimmune rheumatic disease. Clinical picture rather consistent with degenerative arthritis. Discussed different management strategies for osteoarthritis. For hands patient consider doing occupational therapy or buying a paraffin wax machine. Can consider physical therapy for degenerative spinal arthritis. Patient will think about it. Follow-up with PCP (2) LFT elevation: Code(s): R79.89 - Other specified abnormal findings of blood chemistry Plan: Follow-up with PCP Plan I spent 17 minutes reviewing patient's chart, evaluating patient, counseling patient and documenting in the chart Coding Level of Care Code Est Pt Level 3 (19740) Diagnoses Polyarthralgia M25.50 LFT elevation R79.89
[2023-06-27 14:35] VITALS: BP 126/70; PULSE 78; O2SAT 96; BMI 31.5
== END 2023-06-27 14:55 | disposition home or self-care (01) ==
PROVIDERS: PCP Internal Medicine; Visit Provider Student in an Organized Health Care Education/Training Program
DX: M25.50 Pain in unspecified joint (principal); R79.89 Other specified abnormal findings of blood chemistry
CPT/HCPCS: 99213

== ENCOUNTER → 2023-06-27 14:26 | Outpatient (BNVA) | payer OTHER, SELFPAY | PROVIDERS: PCP Internal Medicine; Visit Provider Student in an Organized Health Care Education/Training Program | DX: M25.50 Pain in unspecified joint (principal); R79.89 Other specified abnormal findings of blood chemistry | CPT/HCPCS: 99212 ==

== ENCOUNTER 2023-07-04 10:28 | Outpatient (AMB) | payer OTHER, SELFPAY ==
[2023-07-04 10:35] VITALS: BP 120/82; BMI 30.9
--- NOTE | 2023-07-04 10:35 | MHC.PC.OV ---
Vital Signs 07/04/23 10:35 Height 5 ft 4 in Weight 180 lb BMI 30.9 BP 120/82 Blood Pressure Location Lt brachial Position Sitting Intake Visit Reasons: DM Intake Note: Patient here for a follow up DM Intelligence Operations Specialist Required: No Accompanied by: Self / Same As Patient Allergies lisinopril Adverse Reaction (Severe, Verified 07/04/23 10:53) rash, cough, itchy throat Medication List - Last Reconciled 07/04/23 by Viji Chacon MD amlodipine 5 mg PO DAILY 90 days atorvastatin 10 mg PO DAILY 90 days blood sugar diagnostic (FreeStyle Lite Strips) As directed lancets (FreeStyle Lancets) As directed metformin ER 500 mg PO BID 90 days miscellaneous medical supply (Blood Pressure Cuff) As directed omeprazole 20 mg PO DAILY 90 days Tobacco use date assessed: 07/04/23 Dental Screening Dental Screen Date: 07/04/23 Did you have a dental visit in the last 12 months?: Yes Did you have a dental problem in the last 6 months where you did not have access to dental care?: No Was dental information given to patient?: Patient has dentist HPI HPI Comments History of Present Illness Details This is a 53-year-old male with diabetes mellitus type 2, hypertension, hyperlipidemia and GERD comes today for follow-up on his conditions. Blood pressure stable. A1c within goal. Lipid panel will be order and his LDL goal should be less than 70. GERD stable with PPIs as needed. No chest pain or shortness of breath. [facility] Surgical History History of hand surgery Family History Mother Alzheimer disease Osteoporosis Father Diabetes Social History Household Members: Spouse and Children Housing: House Alcohol intake: former Patient Tobacco Use Status: Never used Tobacco e-Cigarette/Vaping Use: Never Used Second Hand Smoke Exposure: No service: No Current occupational status: employed Current occupation: Maintenance Current occupational exposures/hazards: No Cognitive needs: No Hearing needs: No Vision needs: Yes Questionnaire PHQ-9 Over the last 2 weeks, how often have you been bothered by any of the following problems? 1. Little interest or pleasure in doing things: not at all 2. Feeling down, depressed, or hopeless: not at all 3. Trouble falling or staying asleep, or sleeping too much: not at all 4. Feeling tired or having little energy: not at all 5. Poor appetite or overeating: not at all 6. Feeling bad about yourself - or that you are a failure or have let yourself or your family down: not at all 7. Trouble concentrating on things, such as reading the newspaper or watching television: not at all 8. Moving or speaking so slowly that other people could have noticed. Or the opposite - being so fidgety or restless that you have been moving around a lot more than usual: not at all 9. Thoughts that you would be better off or of hurting yourself in some way: not at all Total score: 0 Depression Screening Interpretation: Negative Depression Screening Done: Yes 88523 - PHQ-9 Billing: Yes Source: Developed by Drs. Stuart Walton, Amanda Mcwilliams, Marcel Mcmahon and colleagues, with an educational concepcion from [employer]. Thrive Questionnaire Date Thrive assessed: 07/04/23 I am a: Patient What is your living situation today?: I have a steady place to live Within the past 12 months, did the food you bought not last and you didn't have the money to get more?: Never true Within the past 12 months, did you worry whether your food would run out before you got money to buy more?: Never true Do you have trouble paying for medicines?: No Do you have trouble getting transportation to medical appointments?: No Do you have trouble paying your heating and electricity bill?: No Do you have trouble taking care of your child, family member or friend?: No Do you have trouble with day-to-day activities such as bathing, preparing meals, shopping, managing finances, etc.?: No Are you currently unemployed and looking for a job?: No Are you interested in more education?: No Please select the resources that you would like help with: None Currently or been in a relationship where the following occur: no concerns reported THRIVE Score: 0 AUDIT C Alcohol Use Questionnaire (AUDIT-C) 1. How often do you have a drink containing alcohol?: Never Total Score: 0 Score Reviewed/Action Taken: No YOLIS-7 AMB Questionnaire YOLIS-7 Date YOLIS - 7 assessed: 07/04/23 Feeling nervous, anxious, or on edge: 0 = Not at all Not being able to stop or control worryin = Not at all Worrying too much about different things: 0 = Not at all Trouble relaxin = Not at all Being so restless that it is hard to sit still: 0 = Not at all Becoming easily annoyed or irritable: 0 = Not at all Feeling afraid as if something awful might happen: 0 = Not at all Total YOLIS-7 score (0-4 normal; 5-9 mild; 10-14 moderate; 15-21 severe): 0 Source: Developed by Drs. Stuart Walton, Amanda Mcwilliams, Marcel Mcmahon and colleagues, with an educational concepcion from [facility] [facility]. YOLIS-7 Assessment Billing YOLIS-7 Assessment Tool: YOLIS-7 Assessment 86561 Review of Systems Const All systems reviewed & are unremarkable except as noted in HPI and below Eyes Reports no additional complaints, Denies change in vision and Denies other visual disturbances Card Denies chest pain at rest, Denies chest pain with activity, Denies edema, Denies irregular heart rhythm, Denies claudication, Denies dyspnea, Denies dyspnea on exertion, Denies orthopnea, Denies paroxysmal nocturnal dyspnea and Denies slow heart rate Resp Denies cough, Denies dyspnea and Denies dyspnea on exertion GI Denies abdominal pain, Denies change in bowel habits, Denies excessive flatus, Denies nausea and Denies vomiting Denies urinary hesitancy, Denies urinary incontinence and Denies urinary urgency Musc Denies abnormal gait, Denies atrophy, Denies deformity and Denies limited range of motion Skin/Breast Denies bleeding lesions, Denies changing lesions and Denies rash Neuro Denies abnormal gait, Denies behavioral changes and Denies lack of coordination Psych Denies behavioral changes Physical exam (Primary Care) Vital Signs: Last Vital Signs BP 120/82 07/04/23 10:35 BMI result Body Mass Index 30.9 Tobacco/Smoking Status: Tobacco use Status Tobacco use date assessed 07/04/23 07/04/23 10:44 Patient Tobacco Use Status Never used Tobacco 07/04/23 10:38 e-Cigarette/Vaping Use Never Used 07/04/23 10:38 PHQ-9: PHQ-9 Score PHQ-9: Total score 0 07/04/23 11:03 Depression Screening Interpretation: Negative Thrive Assessment: Date of Thrive Assessment Date Thrive assessed 07/04/23 07/04/23 10:48 Currently or been in a relationship where the following occur: no concerns reported Eyes General: appearance normal, both eyes and all related structures Eyelids: Yes eyelids normal Conjunctivae: conjunctivae normal Neck Neck: Yes normal visual inspection and Yes supple Resp Effort & Inspection: normal respiratory effort Auscultation: clear to auscultation bilaterally Cardio Jugular venous distension: no JVD Rate: regular rate Rhythm: regular rhythm Heart sounds: S1 normal heart sound present and S2 normal heart sound present Extrem General: Yes full ROM Results AMB Hemoglobin A1c AMB Hemoglobin A1c 6.9 % Last Edit by HUI Tarango on 07/04/23 10:51 Results Reviewed Results Reviewed: Laboratory Last Values Hgb A1c (Clinic) 6.9 % (4.0-6.0) H 07/04/23 10:34 Assessment and Plan Assessment & Plan (1) Diabetes mellitus: Code(s): E11.9 - Type 2 diabetes mellitus without complications Plan: Continue metformin. A1c goal is equal or less than 7%. (2) Essential hypertension: Code(s): I10 - Essential (primary) hypertension Plan: Continue amlodipine. Blood pressure goal is equal or less than 130/80. (3) Hyperlipidemia LDL goal <70: Code(s): E78.5 - Hyperlipidemia, unspecified Plan: Continue statins. LDL goal is less than 70. (4) Chronic GERD: Code(s): K21.9 - Gastro-esophageal reflux disease without esophagitis Plan: Continue PPIs. Orders: Orders Lipid Panel Today E78.5 - Hyperlipidemia, unspecified Comprehensive [place]. Panel Fast Today E11.9 - Type 2 diabetes mellitus without complications AMB Hemoglobin A1c Today E11.9 - Type 2 diabetes mellitus without complications Microalbumin, Random (w Creat) Today E11.9 - Type 2 diabetes mellitus without complications Referrals Open Access Screening Colonoscopy Referral Z12.11 - Encounter for screening for malignant neoplasm of colon Coding Level of Care Code Est Pt Level 4 (58563) Diagnoses Diabetes mellitus E11.9 Essential hypertension I10 Hyperlipidemia LDL goal <70 E78.5 Chronic GERD K21.9 Additional Codes YOLIS-7 Assessment Billing - YOLIS-7 Assessment Tool: YOLIS-7 Assessment 88956 ([id number]) Time Spent (min) 23
== END 2023-07-04 11:00 | disposition home or self-care (01) ==
PROVIDERS: PCP Internal Medicine; Visit Provider Internal Medicine
DX: E11.9 Type 2 diabetes mellitus without complications (principal); I10 Essential (primary) hypertension; E78.5 Hyperlipidemia, unspecified; K21.9 Gastro-esophageal reflux disease without esophagitis
CPT/HCPCS: 83036; 99214

== ENCOUNTER 2023-07-05 07:51 | Outpatient (REF) | payer OTHER, SELFPAY ==
[2023-07-05 09:11] LABS: Alanine Aminotransferase 53 U/L (0-40); Albumin Level 4.3 g/dL (3.5-5.0); Alkaline Phosphatase 51 U/L (39-117); Anion Gap 13 (12-20); Aspartate Amino Transferase 31 U/L (5-37); Bilirubin Total 0.3 mg/dL (0.0-1.0); Blood Urea Nitrogen 16 mg/dL (9-16); Calcium 9.3 mg/dL (8.4-10.2); Carbon Dioxide 29 mmol/L (22-29); Chloride 104 mmol/L (96-108); Cholesterol 127 mg/dL (<200); Estimated Glomerular Filt Rate > 60; Glucose Fasting 113 mg/dL (60-99); HDL Cholesterol 36 mg/dL (>40); LDL Cholesterol Calculated 71 mg/dL (<100); Sodium 142 mmol/L (135-145); Total Protein 7.5 g/dL (6.5-8.0); Triglycerides 102 mg/dL (<150)
[2023-07-05 09:18] LABS: Vitamin D 25-OH Total 29.5 ng/mL (>30)
[2023-07-05 10:29] LABS: Creatinine Urine 299.45 mg/dL
== END 2023-07-05 07:52 | disposition home or self-care (01) ==
LOC: HO.LAB 07:51
PROVIDERS: PCP Internal Medicine; Visit Provider Internal Medicine
DX: Z00.00 Encounter for general adult medical examination without abnormal findings (principal); E11.9 Type 2 diabetes mellitus without complications; E78.5 Hyperlipidemia, unspecified; E55.9 Vitamin D deficiency, unspecified
CPT/HCPCS: 36415; 80053; 80061; 82043; 82306; 82570

== ENCOUNTER 2023-11-16 10:33 | Outpatient (REF) | payer OTHER, SELFPAY ==
[2023-11-17 10:58] LABS: Rubella IgG Antibody 8.38 Index; Rubeola IgG (Measles) >300.00 AU/mL
== END 2023-11-16 10:34 | disposition home or self-care (01) ==
LOC: HO.LAB 10:33
PROVIDERS: PCP Internal Medicine; Visit Provider Internal Medicine
DX: Z01.84 Encounter for antibody response examination (principal)
CPT/HCPCS: 36415; 86735; 86762; 86765

== ENCOUNTER 2023-12-23 08:15 | Outpatient (AMB) | payer OTHER, SELFPAY ==
--- NOTE | 2023-12-23 08:43 | MHC.OFFWIV ---
Intake Vital Signs 12/23/23 08:44 Height 5 ft 4 in Weight 185 lb BMI 31.8 BP 140/100 H Blood Pressure Location Rt brachial Position Sitting Pulse 60 Pulse Source Pulse Oximeter Pulse Oximetry (%) 98 Oxygen Delivery Method Room Air Intake Visit Reasons: EP-h/blood pressure 152/99 headaches Intake Note: Patient here for elevated BP that has been going on for about 1 week. Patient Tobacco Use Status: Never used Tobacco Allergies lisinopril Adverse Reaction (Severe, Verified 12/23/23 08:45) rash, cough, itchy throat Do you need a note to return to daycare/school/sports/work: No HPI HPI Comments History of Present Illness Details Patient is a 53-year-old male with a past medical history of hypertension and diabetes stating he has last few weeks. States he has been checking his blood sugars every day and they are within the normal range. He also states impression it is only been elevated. He shows me pictures he took of the blood pressure machine that he has at home showing consistently elevated blood pressures between 140 and 160 systolic and between 90 and 115 diastolic. He states he has not changed his normal diet and not eating an elevated amount of salt from his typical diet. He states he has been taking his 5 mg of amlodipine daily. [facility] Surgical History History of hand surgery Family History Mother Alzheimer disease Osteoporosis Father Diabetes Social History Household Members: Spouse and Children Housing: House Alcohol intake: former Patient Tobacco Use Status: Never used Tobacco e-Cigarette/Vaping Use: Never Used Second Hand Smoke Exposure: No service: No Current occupational status: employed Current occupation: Maintenance Current occupational exposures/hazards: No Cognitive needs: No Hearing needs: No Vision needs: Yes Review of Systems Const All systems reviewed & are unremarkable except as noted in HPI and below Physical Exam Vital Signs: Last Vital Signs Pulse 60 12/23/23 08:44 BP 140/100 H 12/23/23 08:44 Pulse Ox 98 12/23/23 08:44 Oxygen Delivery Method Room Air 12/23/23 08:44 BMI result Body Mass Index 31.8 Const General: cooperative, healthy appearing, comfortable, no acute distress and well developed Orientation/consciousness: patient oriented x3 Limitations: no limitations HEENT Head: Yes normal to inspection Ears: hearing grossly normal bilaterally General nose exam: Normal external nose present Face and sinus: Yes normal facial exam Eyes General: appearance normal, both eyes and all related structures Neck Neck: Yes normal visual inspection and Yes full ROM Resp Effort & Inspection: normal respiratory effort and able to speak in complete sentences Skin General skin exam: no rashes or lesions noted Neuro General: patient oriented x3 Extrem General: Yes normal to inspection Assessment & Plan Assessment & Plan (1) Elevated blood pressure reading in office with diagnosis of hypertension: Code(s): I10 - Essential (primary) hypertension Plan: TERE Edge interpreted for me. As patient is consistently hypertensive on his current regimen, I did tell him to take 10 mg of amlodipine daily, log his blood pressures 3 times a day for the next 5 days and write down the blood pressures and bring this log to the doctor's appointment that I made for him next week. He is going to follow up with Dr. Escalante, his PCP, on December 27 at 09:00. Gave him the goals and instructed if his blood pressure was less than 90/60, he should only take 5 mg of the amlodipine. If his blood pressures were consistently over 130/90 and his headaches do not go away, he knows he needs to go to the emergency department. Sent a note to his PCP informing her of the issue and the change of medication. Plan see above Coding Level of Care Code Est Pt Level 4 (49756) Diagnoses Elevated blood pressure reading in office with diagnosis of hypertension I10
[2023-12-23 08:44] VITALS: BP 140/100; PULSE 60; O2SAT 98; BMI 31.8
== END 2023-12-23 08:59 | disposition home or self-care (01) ==
PROVIDERS: PCP Internal Medicine; Visit Provider Physician Assistant
DX: I10 Essential (primary) hypertension (principal)
CPT/HCPCS: 99214

== ENCOUNTER 2023-12-28 08:51 | Outpatient (AMB) | payer OTHER, SELFPAY ==
[2023-12-28 08:58] VITALS: BP 138/86; PULSE 56; O2SAT 98; BMI 31.2
--- NOTE | 2023-12-28 08:58 | MHC.PC.OV ---
Vital Signs 12/28/23 08:58 Height 5 ft 4 in Weight 182 lb 0.8 oz BMI 31.2 BP 138/86 Blood Pressure Location Lt brachial Position Sitting Pulse 56 Pulse Source Pulse Oximeter Pulse Oximetry (%) 98 Oxygen Delivery Method Room Air Intake Visit Reasons: Change in meds per Bety Connally Intake Note: pt seen at [facility] 12/22 for elevated BP Brand Ambassador Required: No Accompanied by: Self / Same As Patient Allergies lisinopril Adverse Reaction (Severe, Verified 12/28/23 09:15) rash, cough, itchy throat Medication List - Last Reconciled 12/28/23 by Viji Chacon MD amlodipine 5 mg PO DAILY 90 days atorvastatin 10 mg PO DAILY 90 days blood sugar diagnostic (FreeStyle Lite Strips) As directed lancets (FreeStyle Lancets) As directed metformin ER 500 mg PO BID 90 days miscellaneous medical supply (Blood Pressure Cuff) As directed omeprazole 20 mg PO DAILY 90 days Tobacco use date assessed: 07/04/23 Dental Screening Dental Screen Date: 07/04/23 HPI HPI Comments History of Present Illness Details This is a 53-year-old male with diabetes mellitus type 2, hypertension and hyperlipidemia that comes today complaining of persistent headaches that happens daily and started about 3 weeks ago. He denies any blurry vision associated with headache or eye pain. He also denies any unilateral weakness associated with a headache or photosensitivity. The headache improves with Excedrin migraine [id number]. Denies previous trauma. Has been noticing elevated blood pressure and went to urgent care and they increase amlodipine 5 mg to 10 mg. A1c within goal. LDL within goal. Will order MRI and start him on sumatriptan as needed. [facility] Surgical History History of hand surgery Family History Mother Alzheimer disease Osteoporosis Father Diabetes Social History Household Members: Spouse and Children Housing: House Alcohol intake: former Patient Tobacco Use Status: Never used Tobacco e-Cigarette/Vaping Use: Never Used Second Hand Smoke Exposure: No service: No Current occupational status: employed Current occupation: Maintenance Current occupational exposures/hazards: No Cognitive needs: No Hearing needs: No Vision needs: Yes Questionnaire Thrive Questionnaire Date Thrive assessed: 07/04/23 AUDIT C Alcohol Use Questionnaire (AUDIT-C) 1. How often do you have a drink containing alcohol?: Never Total Score: 0 Score Reviewed/Action Taken: No YOLIS-7 AMB Questionnaire YOLIS-7 Date YOLIS - 7 assessed: 07/04/23 Source: Developed by Drs. Stuart Walton, Amanda Mcwilliams, Marcel Mcmahon and colleagues, with an educational concepcion from [employer] Review of Systems Const All systems reviewed & are unremarkable except as noted in HPI and below Reports headache(s) ENT Denies change in voice, Reports headache(s), Denies nasal discharge and Denies sinus pain Card Denies chest pain at rest, Denies chest pain with activity, Denies edema, Denies irregular heart rhythm, Denies claudication, Denies dyspnea, Denies dyspnea on exertion, Denies orthopnea, Denies paroxysmal nocturnal dyspnea and Denies slow heart rate Resp Denies cough, Denies dyspnea and Denies dyspnea on exertion GI Denies abdominal pain, Denies change in bowel habits, Denies excessive flatus, Denies nausea and Denies vomiting Denies urinary hesitancy, Denies urinary incontinence and Denies urinary urgency Musc Denies atrophy, Denies deformity and Denies limited range of motion Neuro Reports headache(s) Physical exam (Primary Care) Vital Signs: Last Vital Signs Pulse 56 12/28/23 08:58 BP 138/86 12/28/23 08:58 Pulse Ox 98 12/28/23 08:58 Oxygen Delivery Method Room Air 12/28/23 08:58 BMI result Body Mass Index 31.2 BMI Assessment/Plan discussion: High BMI High, discussed plan: lifestyle, weight reduction, dietary and physical activity Tobacco/Smoking Status: Tobacco use Status Tobacco use date assessed 07/04/23 12/28/23 09:01 Patient Tobacco Use Status Never used Tobacco 12/28/23 09:01 e-Cigarette/Vaping Use Never Used 12/28/23 09:01 Thrive Assessment: Date of Thrive Assessment Date Thrive assessed 07/04/23 12/28/23 09:01 Resp Effort & Inspection: normal respiratory effort Auscultation: clear to auscultation bilaterally Cardio Jugular venous distension: no JVD Rate: regular rate Rhythm: regular rhythm Heart sounds: S1 normal heart sound present and S2 normal heart sound present Neuro General: no focal motor deficits Extrem General: Yes full ROM Results AMB Hemoglobin A1c AMB Hemoglobin A1c 6.4 % Last Edit by HUI Blevins on 12/28/23 09:08 Results Reviewed Results Reviewed: Laboratory Last Values Hgb A1c (Clinic) 6.4 % (4.0-6.0) H 12/28/23 09:07 Assessment and Plan Assessment & Plan (1) Diabetes mellitus: Code(s): E11.9 - Type 2 diabetes mellitus without complications Qualifiers: Diabetes mellitus type: type 2 Diabetes mellitus youth corrections officer insulin use: without custodial use Diabetes mellitus complication status: without complication Qualified Code(s): E11.9 - Type 2 diabetes mellitus without complications Plan: Continue metformin. A1c goal is equal or less than 7%. (2) Essential hypertension: Code(s): I10 - Essential (primary) hypertension Plan: Continue amlodipine 10 mg now. Blood pressure goal is equal or less than 130/80. (3) Hyperlipidemia LDL goal <70: Code(s): E78.5 - Hyperlipidemia, unspecified Plan: Continue statins. LDL goal is less than 70. (4) Persistent headaches: Code(s): R51.9 - Headache, unspecified Plan: MRI ordered. Start sumatriptan as needed. Orders: Orders Microalbumin, Random (w Creat) Today E11.9 - Type 2 diabetes mellitus without complications AMB Hemoglobin A1c Today E11.9 - Type 2 diabetes mellitus without complications MR head/brain wo con Today R51.9 - Headache, unspecified Lipid Panel Today E78.5 - Hyperlipidemia, unspecified Comprehensive [place]. Panel Fast Today R51.9 - Headache, unspecified Complete Blood Count Auto Diff Today R51.9 - Headache, unspecified Medications: New sumatriptan succinate do not exceed 8 doses per 24 hrs 25 mg PO Q2-4H PRN 9 tabs 2RF migraine headache 30 days R51.9 - Headache, unspecified amlodipine 10 mg PO DAILY 90 tabs 1RF 90 days Discontinued amlodipine Discontinued Reason: Patient Completed Course 5 mg PO DAILY 90 days 90 tabs 2RF I10 - Essential (primary) hypertension Coding Level of Care Code Est Pt Level 4 (28428) Complex EM visit Add On G2211 Diagnoses Type 2 diabetes mellitus without complication, without long-term current use of insulin E11.9 Diabetes mellitus type: type 2 Diabetes mellitus custodial insulin use: without custodial use Diabetes mellitus complication status: without complication Essential hypertension I10 Hyperlipidemia LDL goal <70 E78.5 Persistent headaches R51.9 Time Spent (min) 22
== END 2023-12-28 09:24 | disposition home or self-care (01) ==
PROVIDERS: PCP Internal Medicine; Visit Provider Internal Medicine
DX: E11.9 Type 2 diabetes mellitus without complications (principal); I10 Essential (primary) hypertension; E78.5 Hyperlipidemia, unspecified; R51.9 Headache, unspecified
CPT/HCPCS: 83036; 99214; G2211

== ENCOUNTER 2023-12-28 09:29 | Outpatient (REF) | payer OTHER, SELFPAY ==
[2023-12-28 09:51] LABS: MANUAL DIFF FLAG NO
[2023-12-28 10:06] LABS: Basophils Absolute Auto 0.1 X10*3/uL (0.0-0.2); Basophils Percent Auto 1.2 % (0-2); Eosinophils Absolute Auto 0.2 X10*3/uL (0.0-0.4); Eosinophils Percent Auto 4.5 % (0-4); Hematocrit 45.9 % (42.0-52.0); Hemoglobin 15.1 g/dl (14.0-18.0); Imm Gran Abs Auto 0.02 X10*3/uL (0.00-0.03); Imm Gran Pct Auto 0.5 % (0.0-0.4); Lymphocytes Absolute Auto 2.2 X10*3/uL (1.2-4.9); Lymphocytes Percent Auto 54.1 % (20-40); Mean Corpuscular HGB Conc 32.9 g/dl (31.0-36.0); Mean Corpuscular Hemoglobin 27.9 pg (27.0-33.0); Mean Corpuscular Volume 84.7 fL (80.0-98.0); Mean Platelet Volume 8.8 fL (9.4-12.4); Monocytes Absolute Auto 0.3 X10*3/uL (0.1-1.2); Monocytes Percent Auto 8.5 % (2-11); Neutrophils Absolute Auto 1.3 x10*3/uL (2.0-8.3); Neutrophils Percent Auto 31.2 % (45-73); Platelet Count 231 X10*3/uL (160-400); Red Blood Count 5.42 X10*6/uL (4.60-5.80); Red Cell Distribution Width 12.6 % (11.0-16.0)
[2023-12-28 10:23] LABS: Creatinine Urine 185.85 mg/dL; Microalbum/Creatinine Ratio Ur 5.9 ug/mg cr (<30)
[2023-12-28 10:34] LABS: Alanine Aminotransferase 64 U/L (0-40); Albumin Level 4.5 g/dL (3.5-5.0); Alkaline Phosphatase 44 U/L (39-117); Anion Gap 13 (12-20); Aspartate Amino Transferase 41 U/L (5-37); Bilirubin Total 0.4 mg/dL (0.0-1.0); Blood Urea Nitrogen 19 mg/dL (9-16); Calcium 9.8 mg/dL (8.4-10.2); Carbon Dioxide 30 mmol/L (22-29); Chloride 102 mmol/L (96-108); Cholesterol 152 mg/dL (<200); Estimated Glomerular Filt Rate > 60; Glucose Fasting 121 mg/dL (60-99); HDL Cholesterol 39 mg/dL (>40); LDL Cholesterol Calculated 78 mg/dL (<100); Potassium 4.7 mmol/L (3.3-5.1); Sodium 140 mmol/L (135-145); Total Protein 7.6 g/dL (6.5-8.0); Triglycerides 178 mg/dL (<150)
== END 2023-12-28 09:30 | disposition home or self-care (01) ==
LOC: HO.LAB 09:29
PROVIDERS: PCP Internal Medicine; Visit Provider Internal Medicine
DX: E11.9 Type 2 diabetes mellitus without complications (principal); R51.9 Headache, unspecified; E78.5 Hyperlipidemia, unspecified
CPT/HCPCS: 36415; 80053; 80061; 82043; 82570; 85025

== ENCOUNTER → 2024-01-13 10:02 | Outpatient (BNVA) | payer OTHER, SELFPAY | PROVIDERS: PCP Internal Medicine ==

== ENCOUNTER → 2024-02-12 10:47 | Outpatient (BNV) | payer OTHER, SELFPAY | PROVIDERS: PCP Internal Medicine; Visit Provider Radiology Diagnostic Radiology | DX: R51.9 Headache, unspecified (principal) | CPT/HCPCS: 70551 ==

== ENCOUNTER 2024-02-12 10:56 | Outpatient (REF) | payer OTHER, SELFPAY ==
--- NOTE | ~2024-02-12 | MR_ITS ---
EXAMINATION: MR BRAIN WITHOUT CONTRAST CLINICAL INFORMATION: Headache. COMPARISON: None available. TECHNIQUE: MRI of the brain was obtained using routine sequences without contrast. FINDINGS: Submitted for interpretation on March 07, 2024. No restricted diffusion. No acute intracranial hemorrhage, mass effect, midline shift, hydrocephalus or herniation. Vickers-white matter differentiation is normal. Multifocal punctate hyperintense T2 FLAIR signal within the deep white matter of the frontoparietal lobes. Linear susceptibility, left frontoparietal region. Flow-void signal within the main cerebral vessels is normal. Sellar/suprasellar region is normal. Craniocervical junction is intact and normal. MR/MR head/brain wo con IMPRESSION: No acute brain abnormality. 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 Recommend IV contrast enhancement. Electronically signed by: Iban Marrero MD 03/07/2024 08:36 AM EST
== END 2024-02-12 10:57 | disposition home or self-care (01) ==
LOC: HO.MRI 10:56
PROVIDERS: PCP Internal Medicine; Visit Provider Internal Medicine
DX: R51.9 Headache, unspecified (principal)
CPT/HCPCS: 70551

== ENCOUNTER 2024-03-05 08:11 | Outpatient (AMB) | payer OTHER, SELFPAY ==
--- NOTE | 2024-03-05 08:37 | A.OFFPC_ITS ---
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 Accompanied by: Self / Same As Patient Allergies lisinopril Adverse Reaction (Severe, Verified 03/05/24 08:49) rash, cough, itchy throat sumatriptan Adverse Reaction (Intermediate, Verified 03/05/24 08:53) inadequate response Medication List - Last Reconciled 03/05/24 by Viji Chacon MD amlodipine 10 mg PO DAILY 90 days atorvastatin 10 mg PO DAILY 90 days blood sugar diagnostic (FreeStyle Lite Strips) As directed lancets (FreeStyle Lancets) As directed metformin ER 500 mg PO BID 90 days miscellaneous medical supply (Blood Pressure Cuff) As directed omeprazole 20 mg PO DAILY 90 days sumatriptan succinate 25 mg PO Q2-4H PRN 30 days Tobacco use date assessed: 07/04/23 Dental Screening Dental Screen Date: 03/05/24 Did you have a dental visit in the last 12 months?: No Did you have a dental problem in the last 6 months where you did not have access to dental care?: No Was dental information given to patient?: Patient has dentist HPI HPI Comments History of Present Illness Details This is a 53-year-old male with diabetes mellitus type 2 that comes for his physical exam. A1c within goal. Last diabetic eye exam was less than a year ago. Will have colonoscopy soon. No chest pain or shortness on breath. [facility] Surgical History History of hand surgery Family History Mother Alzheimer disease Osteoporosis Father Diabetes Social History Household Members: Spouse and Children Housing: House Alcohol intake: former Patient Tobacco Use Status: Never used Tobacco e-Cigarette/Vaping Use: Never Used Second Hand Smoke Exposure: No service: No Current occupational status: employed Current occupation: Maintenance Current occupational exposures/hazards: No Cognitive needs: No Hearing needs: No Vision needs: Yes Questionnaire PHQ-9 Over the last 2 weeks, how often have you been bothered by any of the following problems? 1. Little interest or pleasure in doing things: not at all 2. Feeling down, depressed, or hopeless: several days 3. Trouble falling or staying asleep, or sleeping too much: not at all 4. Feeling tired or having little energy: nearly every day 5. Poor appetite or overeating: not at all 6. Feeling bad about yourself - or that you are a failure or have let yourself or your family down: not at all 7. Trouble concentrating on things, such as reading the newspaper or watching television: several days 8. Moving or speaking so slowly that other people could have noticed. Or the opposite - being so fidgety or restless that you have been moving around a lot more than usual: not at all 9. Thoughts that you would be better off or of hurting yourself in some way: not at all Total score: 5 Depression Screening Interpretation: Positive Depression Screening Follow-up: Existing condition and Follow-up Visit Requested Depression Screening Done: Yes 98211 - PHQ-9 Billing: Yes Source: Developed by Drs. Stuart Walton, Amanda Mcwilliams, Marcel Mcmahon and colleagues, with an educational concepcion from [employer]. Thrive Questionnaire Date Thrive assessed: 03/05/24 I am a: Patient What is your living situation today?: I have a steady place to live Within the past 12 months, did the food you bought not last and you didn't have the money to get more?: Sometimes True Within the past 12 months, did you worry whether your food would run out before you got money to buy more?: Sometimes True Do you have trouble paying for medicines?: Yes Do you have trouble getting transportation to medical appointments?: No Do you have trouble paying your heating and electricity bill?: Yes Do you have trouble taking care of your child, family member or friend?: No Do you have trouble with day-to-day activities such as bathing, preparing meals, shopping, managing finances, etc.?: No Are you currently unemployed and looking for a job?: No Are you interested in more education?: Yes Please select the resources that you would like help with: Paying for medicine Currently or been in a relationship where the following occur: No concerns reported THRIVE Score: 3 AUDIT C Alcohol Use Questionnaire (AUDIT-C) 1. How often do you have a drink containing alcohol?: Never Total Score: 0 Score Reviewed/Action Taken: No YOLIS-7 AMB Questionnaire YOLIS-7 Date YOLIS - 7 assessed: 03/05/24 Feeling nervous, anxious, or on edge: 1 = Several days Not being able to stop or control worryin = Not at all Worrying too much about different things: 0 = Not at all Trouble relaxin = Several days Being so restless that it is hard to sit still: 0 = Not at all Becoming easily annoyed or irritable: 1 = Several days Feeling afraid as if something awful might happen: 0 = Not at all Total YOLIS-7 score (0-4 normal; 5-9 mild; 10-14 moderate; 15-21 severe): 3 Source: Developed by Drs. Stuart Walton, Amanda Mcwilliams, Marcel Mcmahon and colleagues, with an educational concepcion from [employer]. YOLIS-7 Assessment Billing YOLIS-7 Assessment Tool: YOLIS-7 Assessment 02668 Review of Systems Const All systems reviewed & are unremarkable except as noted in HPI and below Card Denies chest pain at rest, Denies chest pain with activity, Denies edema, Denies irregular heart rhythm, Denies claudication, Denies dyspnea, Denies dyspnea on exertion, Denies orthopnea, Denies paroxysmal nocturnal dyspnea and Denies slow heart rate Resp Denies cough, Denies dyspnea and Denies dyspnea on exertion GI Denies abdominal pain, Denies change in bowel habits, Denies excessive flatus, Denies nausea and Denies vomiting Physical exam (Primary Care) Vital Signs: Last Vital Signs BP 130/86 03/05/24 08:38 BMI result Body Mass Index 30.9 BMI Assessment/Plan discussion: High BMI High, discussed plan: lifestyle, weight reduction, dietary and physical activity Tobacco/Smoking Status: Tobacco use Status Tobacco use date assessed 07/04/23 03/05/24 08:39 Patient Tobacco Use Status Never used Tobacco 03/05/24 08:39 e-Cigarette/Vaping Use Never Used 03/05/24 08:39 PHQ-9: PHQ-9 Score PHQ-9: Total score 5 03/05/24 08:54 Depression Screening Interpretation: Positive Depression Screening Follow-up: Existing condition and Follow-up Visit Requested Thrive Assessment: Date of Thrive Assessment Date Thrive assessed 03/05/24 03/05/24 08:39 Currently or been in a relationship where the following occur: No concerns repo rted HENMT Head: Yes normal to inspection, Yes normocephalic and Yes atraumatic Ears: external ears normal Eyes General: appearance normal, both eyes and all related structures Eyelids: Yes eyelids normal Conjunctivae: conjunctivae normal Neck Neck: Yes normal visual inspection and Yes supple Resp Effort & Inspection: normal respiratory effort Auscultation: clear to auscultation bilaterally Cardio Jugular venous distension: no JVD Rate: regular rate Rhythm: regular rhythm Heart sounds: S1 normal heart sound present and S2 normal heart sound present GI Inspection: Yes normal to inspection Palpation (GI): Soft to palpation and nontender Auscultation: normal bowel sounds Skin General skin exam: no rashes or lesions noted Neuro General: no focal motor deficits Extrem General: Yes full ROM Psych Appearance: grossly normal Office Procedures Flu Questionnaire Does the patient have a severe egg allergy?: No Immunizations Fluarix Triv [id number] (PF) 45 mcg (15 mcg x 3)/0.5 mL IM syringe Performing Provider: Viji Chacon MD Performing Location: [facility] Documented (not given) by: HUI Tarango on 03/05/24 08:43 Reason Not Given: Patient Refused Coding Level of Care Code Est Pt Prev Care 40-64y(33337) Diagnoses Physical exam Z00.00 Type 2 diabetes mellitus without complication, without long-term current use of insulin E11.9 Diabetes mellitus type: type 2 Diabetes mellitus jail insulin use: without terminal make up operator use Diabetes mellitus complication status: without complication Additional Codes YOLIS-7 Assessment Billing - YOLIS-7 Assessment Tool: YOLIS-7 Assessment 17369 ([id number]) PHQ-9 - 94431 - PHQ-9 Billing: Yes ([id number]) Time Spent (min) 31 Assessment & Plan Assessment & Plan (1) Physical exam: Code(s): Z00.00 - Encounter for general adult medical examination without abnormal findings Category: Medical Plan: Repeat in a year. (2) Diabetes mellitus: Code(s): E11.9 - Type 2 diabetes mellitus without complications Category: Medical Qualifiers: Diabetes mellitus type: type 2 Diabetes mellitus terminal make up operator insulin use: without terminal make up operator use Diabetes mellitus complication status: without complication Qualified Code(s): E11.9 - Type 2 diabetes mellitus without complications Plan: Continue metformin. A1c goal is equal or less than 7%. Orders: Orders Influenza [id number] Immunization Today Z23 - Encounter for immunization Lipid Panel 4 Months E78.5 - Hyperlipidemia, unspecified Microalbumin, Random (w Creat) 4 Months R80.9 - Proteinuria, unspecified Comprehensive [place]. Panel Fast 4 Months E11.9 - Type 2 diabetes mellitus without complications
[2024-03-05 08:38] VITALS: BP 130/86; BMI 30.9
== END 2024-03-05 09:01 | disposition home or self-care (01) ==
PROVIDERS: PCP Internal Medicine; Visit Provider Internal Medicine
DX: Z00.00 Encounter for general adult medical examination without abnormal findings (principal); E11.9 Type 2 diabetes mellitus without complications; Z23 Encounter for immunization

== ENCOUNTER → 2024-03-05 08:11 | Outpatient (BNVA) | payer OTHER, SELFPAY | PROVIDERS: PCP Internal Medicine; Visit Provider Internal Medicine | DX: Z00.00 Encounter for general adult medical examination without abnormal findings (principal); E11.9 Type 2 diabetes mellitus without complications | CPT/HCPCS: 90471; 96127; 99396 ==

== ENCOUNTER 2024-03-14 07:38 | Outpatient (REF) | payer OTHER, SELFPAY ==
[2024-03-14 09:31] LABS: Microalbum/Creatinine Ratio Ur 5.2 ug/mg cr (<30)
[2024-03-14 09:34] LABS: Alanine Aminotransferase 62 U/L (0-40); Albumin Level 4.5 g/dL (3.5-5.0); Alkaline Phosphatase 49 U/L (39-117); Anion Gap 12 (12-20); Aspartate Amino Transferase 39 U/L (5-37); Bilirubin Total 0.5 mg/dL (0.0-1.0); Blood Urea Nitrogen 18 mg/dL (9-16); Calcium 9.7 mg/dL (8.4-10.2); Carbon Dioxide 29 mmol/L (22-29); Chloride 102 mmol/L (96-108); Cholesterol 134 mg/dL (<200); Estimated Glomerular Filt Rate > 60; Glucose Fasting 106 mg/dL (60-99); HDL Cholesterol 36 mg/dL (>40); LDL Cholesterol Calculated 73 mg/dL (<100); Potassium 4.1 mmol/L (3.3-5.1); Sodium 139 mmol/L (135-145); Total Protein 7.5 g/dL (6.5-8.0); Triglycerides 126 mg/dL (<150)
[2024-03-14 09:58] LABS: HBsAGNum1 0.33 S/CO (0.00-0.99); Hepatitis A Antibody IgM 0.13 Index (0-0.79); Hepatitis B Core Antibody Nonreactive (Nonreactive); Hepatitis B Surface Antigen Negative (Negative); ~HepC Num1 0.06 S/CO (0.00-0.79); ~Hepatitis A Antibody IgM Nonreactive (Nonreactive); ~Hepatitis B Surface Antibody REACTIVE (Nonreactive); ~Hepatitis C Antibody Nonreactive (Nonreactive)
[2024-03-14 10:08] LABS: Gamma Glutamyl Transpeptidase 33 U/L (11-51)
[2024-03-20 10:39] LABS: Mitochondrial Antibodies NEGATIVE (NEGATIVE)
== END 2024-03-14 07:39 | disposition home or self-care (01) ==
LOC: HO.LAB 07:38
PROVIDERS: PCP Internal Medicine; Visit Provider Internal Medicine
DX: E11.9 Type 2 diabetes mellitus without complications (principal); R74.01 Elevation of levels of liver transaminase levels; E78.5 Hyperlipidemia, unspecified
CPT/HCPCS: 36415; 80053; 80061; 82043; 82570; 82977; 86381; 86704; 86706; 86709; 86803; 87340

== ENCOUNTER → 2024-04-24 09:48 | Outpatient (BNV) | payer OTHER, SELFPAY | PROVIDERS: PCP Internal Medicine; Visit Provider Radiology Diagnostic Radiology | DX: R51.9 Headache, unspecified (principal) | CPT/HCPCS: 70552 ==

== ENCOUNTER 2024-04-24 09:51 | Outpatient (REF) | payer OTHER, SELFPAY ==
--- NOTE | ~2024-04-24 | MR_ITS ---
CLINICAL HISTORY: R51.9 - Headache, unspecified MR brain with contrast Comparison: 02/12/2024 Findings: Study is limited to T1 postcontrast images. Most recent prior full study is 02/12/2024. Significant abnormalities can go undetected without other sequences. There are no abnormal areas of contrast enhancement. Otherwise assessment is incomplete. Impression: Very limited study as above No abnormalities on postcontrast T1 images This document has been electronically signed by: Wade Vieira MD on 04/24/2024 18:49:40
[2024-04-24] MEDS: gadobutroL 10 ML VIAL IVPUSH (10:37)
== END 2024-04-24 09:52 | disposition home or self-care (01) ==
LOC: HO.MRI 09:51
PROVIDERS: PCP Internal Medicine; Visit Provider Internal Medicine
DX: R51.9 Headache, unspecified (principal); R93.89 Abnormal findings on diagnostic imaging of other specified body structures
CPT/HCPCS: 70552; A9585

== ENCOUNTER 2024-12-18 14:00 | Outpatient (AMB) | payer OTHER, SELFPAY ==
[2024-12-18 14:04] VITALS: BP 106/78; PULSE 77; O2SAT 96; BMI 32.1
--- NOTE | 2024-12-18 14:04 | A.OFFPC_ITS ---
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 Accompanied by: Self / Same As Patient Allergies lisinopril Adverse Reaction (Severe, Verified 12/18/24 14:26) rash, cough, itchy throat sumatriptan Adverse Reaction (Intermediate, Verified 12/18/24 14:26) inadequate response Medication List - Last Reconciled 12/18/24 by Viji Chacon MD amlodipine 10 mg PO DAILY 90 days atorvastatin 10 mg PO DAILY 90 days blood sugar diagnostic (FreeStyle Lite Strips) As directed lancets (FreeStyle Lancets) As directed metformin ER 500 mg PO BID 90 days miscellaneous medical supply (Blood Pressure Cuff) As directed omeprazole 20 mg PO DAILY 90 days sumatriptan succinate 25 mg PO Q2-4H PRN 30 days Tobacco use date assessed: 12/18/24 Dental Screening Dental Screen Date: 12/18/24 Did you have a dental visit in the last 12 months?: Yes Did you have a dental problem in the last 6 months where you did not have access to dental care?: No Was dental information given to patient?: Patient has dentist HPI HPI Comments History of Present Illness Details The patient is a 54-year-old male presenting for management of chronic conditions and preventative care. The patient has a history of hypertension, currently managed with amlodipine. He is allergic to lisinopril, which previously caused a rash and cough. The patient is also managing hyperlipidemia with atorvastatin, which he has been taking for 9 days. His diabetes is managed with metformin, and his last A1c was 7.6, up from 6.4 previously. He experiences gastroesophageal reflux disease, for which he takes omeprazole. H e previously used sumatriptan for migraines, but it is no longer effective. The patient reports issues with dry eyes, experiencing cramps and dryness, and has been advised on potential remedies. There were issues with scheduling a colonoscopy, including lack of communication regarding preparation instructions. His , who is the primary contact, did not receive necessary calls for appointment confirmation. [facility] Medical History (Updated 12/18/24 @ 14:42 by Viji Chacon MD) Essential hypertension Hyperlipidemia LDL goal <70 Elevated blood pressure reading in office with diagnosis of hypertension Diabetes mellitus Chronic GERD Surgical History History of hand surgery Family History Mother Alzheimer disease Osteoporosis Father Diabetes Social History Household Members: Spouse and Children Housing: House Alcohol intake: former Patient Tobacco Use Status: Never used Tobacco e-Cigarette/Vaping Use: Never Used Second Hand Smoke Exposure: No service: No Current occupational status: employed Current occupation: Maintenance Current occupational exposures/hazards: No Cognitive needs: No Hearing needs: No Vision needs: Yes Questionnaire PHQ-9 Over the last 2 weeks, how often have you been bothered by any of the following problems? 1. Little interest or pleasure in doing things: not at all 2. Feeling down, depressed, or hopeless: not at all 3. Trouble falling or staying asleep, or sleeping too much: not at all 4. Feeling tired or having little energy: several days 5. Poor appetite or overeating: not at all 6. Feeling bad about yourself - or that you are a failure or have let yourself or your family down: not at all 7. Trouble concentrating on things, such as reading the newspaper or watching television: not at all 8. Moving or speaking so slowly that other people could have noticed. Or the opposite - being so fidgety or restless that you have been moving around a lot more than usual: not at all 9. Thoughts that you would be better off or of hurting yourself in some way: not at all Total score: 1 Depression Screening Interpretation: Negative Depression Screening Done: Yes 10645 - PHQ-9 Billing: Yes Source: Developed by Drs. Stuart Walton, Amanda Mcwilliams, Marcel Mcmahon and colleagues, with an educational concepcion from [employer] Thrive Questionnaire Date Thrive assessed: 12/18/24 I am a: Patient What is your living situation today?: I have a steady place to live Within the past 12 months, did the food you bought not last and you didn't have the money to get more?: Often true Within the past 12 months, did you worry whether your food would run out before you got money to buy more?: Sometimes True Do you have trouble paying for medicines?: No Do you have trouble getting transportation to medical appointments?: No Do you have trouble paying your heating and electricity bill?: No Do you have trouble taking care of your child, family member or friend?: No Do you have trouble with day-to-day activities such as bathing, preparing meals, shopping, managing finances, etc.?: No Are you currently unemployed and looking for a job?: No Are you interested in more education?: Yes Please select the resources that you would like help with: None Currently or been in a relationship where the following occur: No concerns reported THRIVE Score: 2 AUDIT C Alcohol Use Questionnaire (AUDIT-C) 1. How often do you have a drink containing alcohol?: Never 3. How often do you have six or more drinks on one occasion?: Never Total Score: 0 Score Reviewed/Action Taken: No YOLIS-7 AMB Questionnaire YOLIS-7 Date YOLIS - 7 assessed: 12/18/24 Feeling nervous, anxious, or on edge: 0 = Not at all Not being able to stop or control worryin = Not at all Worrying too much about different things: 0 = Not at all Trouble relaxin = Not at all Being so restless that it is hard to sit still: 0 = Not at all Becoming easily annoyed or irritable: 0 = Not at all Feeling afraid as if something awful might happen: 0 = Not at all Total YOLIS-7 score (0-4 normal; 5-9 mild; 10-14 moderate; 15-21 severe): 0 Source: Developed by Drs. Stuart Walton, Amanda Mcwilliams, Marcel Mcmahon and colleagues, with an educational concepcion from [employer] YOLIS-7 Assessment Billing YOLIS-7 Assessment Tool: YOLIS-7 Assessment 89809 Review of Systems Const All systems reviewed & are unremarkable except as noted in HPI and below Card Denies chest pain at rest, Denies chest pain with activity, Denies edema, Denies irregular heart rhythm, Denies claudication, Denies dyspnea, Denies dyspnea on exertion, Denies orthopnea, Denies paroxysmal nocturnal dyspnea and Denies slow heart rate Resp Denies cough, Denies dyspnea and Denies dyspnea on exertion GI Denies abdominal pain, Denies change in bowel habits, Denies excessive flatus, Denies nausea and Denies vomiting Denies urinary hesitancy, Denies urinary incontinence and Denies urinary urgency Musc Denies abnormal gait, Denies atrophy, Denies deformity and Denies limited range of motion Skin/Breast Denies bleeding lesions, Denies changing lesions and Denies rash Neuro Denies abnormal gait and Denies lack of coordination Physical exam (Primary Care) Vital Signs: Last Vital Signs Pulse 77 12/18/24 14:04 BP 106/78 12/18/24 14:04 Pulse Ox 96 12/18/24 14:04 Oxygen Delivery Method Room Air 12/18/24 14:04 BMI result Body Mass Index 32.1 BMI Assessment/Plan discussion: High BMI High, discussed plan: lifestyle, weight reduction, dietary and physical activity Tobacco/Smoking Status: Tobacco use Status Tobacco use date assessed 12/18/24 12/18/24 14:10 Patient Tobacco Use Status Never used Tobacco 12/18/24 14:10 e-Cigarette/Vaping Use Never Used 12/18/24 14:10 PHQ-9: PHQ-9 Score PHQ-9: Total score 1 12/18/24 14:30 Depression Screening Interpretation: Negative Thrive Assessment: Date of Thrive Assessment Date Thrive assessed 12/18/24 12/18/24 14:10 Currently or been in a relationship where the following occur: No concerns reported Resp Effort & Inspection: normal respiratory effort Auscultation: clear to auscultation bilaterally Cardio Jugular venous distension: no JVD Rate: regular rate Rhythm: regular rhythm Heart sounds: S1 normal heart sound present and S2 normal heart sound present Extrem General: Yes full ROM Results AMB Hemoglobin A1c AMB Hemoglobin A1c 7.6 % Last Edit by HUI Owusu on 12/18/24 14 :36 Coding Level of Care Code Est Pt Level 4 (45309) Complex EM visit Add On G2211 Diagnoses Type 2 diabetes mellitus without complication, without long-term current use of insulin E11.9 Diabetes mellitus type: type 2 Diabetes mellitus residential insulin use: without residential use Diabetes mellitus complication status: without complication Essential hypertension I10 Chronic GERD K21.9 Hyperlipidemia LDL goal <70 E78.5 Additional Codes PHQ-9 - 80558 - PHQ-9 Billing: Yes ([id number]) YOLIS-7 Assessment Billing - YOLIS-7 Assessment Tool: YOLIS-7 Assessment 67540 ([id number]) Time Spent (min) 23 Assessment & Plan Assessment & Plan (1) Diabetes mellitus: Code(s): E11.9 - Type 2 diabetes mellitus without complications Category: Medical Qualifiers: Diabetes mellitus type: type 2 Diabetes mellitus director long term care insulin use: without director long term care use Diabetes mellitus complication status: without complication Qualified Code(s): E11.9 - Type 2 diabetes mellitus without complications (2) Essential hypertension: Code(s): I10 - Essential (primary) hypertension Category: Medical (3) Chronic GERD: Code(s): K21.9 - Gastro-esophageal reflux disease without esophagitis Category: Medical (4) Hyperlipidemia LDL goal <70: Code(s): E78.5 - Hyperlipidemia, unspecified Category: Medical Plan Plan Patient was informed and verbally consented to the use of an ambient scribe for clinic note documentation during this visit. 1. Essential (primary) hypertension I10 The patient's hypertension is currently managed with amlodipine. 2. Hyperlipidemia, unspecified E78.5 The patient is managing hyperlipidemia with atorvastatin, which he has been taking for 9 days. 3. Type 2 diabetes mellitus without complications E11.9 HCC 19 The patient's diabetes is managed with metformin, and his last A1c was 7.6, up from 6.4 previously. 4. Gastro-esophageal reflux disease without esophagitis K21.9 The patient experiences gastroesophageal reflux disease, for which he takes omeprazole. 5. Dry eye syndrome of bilateral lacrimal glands H04.123 The patient reports issues with dry eyes, experiencing cramps and dryness, and has been advised on potential remedies. Orders: Orders AMB Hemoglobin A1c Today Z13.9 - Encounter for screening, unspecified Lipid Panel Today E78.5 - Hyperlipidemia, unspecified Microalbumin, Random (w Creat) Today R80.9 - Proteinuria, unspecified Comprehensive [place]. Panel Fast Today E11.9 - Type 2 diabetes mellitus without complications Referrals Open Access Screening Colonoscopy Referral Z12.12 - Encounter for screening for malignant neoplasm of rectum
--- OUTSIDE RECORDS SUMMARY | 2024-12-18 14:57 | XMS_ITS ---
Author Name [facility] Organization Unknown Care Team Organization Name Specialty Phone Email Start Date End Da te [facility] 03/02/20222023
== END 2024-12-18 14:40 | disposition home or self-care (01) ==
LOC: HO.HMCH 14:00
PROVIDERS: PCP Internal Medicine; Visit Provider Internal Medicine
DX: E11.9 Type 2 diabetes mellitus without complications (principal); I10 Essential (primary) hypertension; K21.9 Gastro-esophageal reflux disease without esophagitis; E78.5 Hyperlipidemia, unspecified; Z13.9 Encounter for screening, unspecified

== ENCOUNTER → 2024-12-18 14:00 | Outpatient (BNVA) | payer OTHER, SELFPAY | PROVIDERS: PCP Internal Medicine; Visit Provider Internal Medicine | DX: E11.9 Type 2 diabetes mellitus without complications (principal); I10 Essential (primary) hypertension; E78.5 Hyperlipidemia, unspecified; K21.9 Gastro-esophageal reflux disease without esophagitis; H04.123 Dry eye syndrome of bilateral lacrimal glands; R80.9 Proteinuria, unspecified; Z79.899 Other long term (current) drug therapy | CPT/HCPCS: 83036; 96127; 99212 ==

== ENCOUNTER 2025-01-30 07:22 | Outpatient (REF) | payer OTHER, SELFPAY ==
[2025-01-30 08:14] LABS: Alanine Aminotransferase 87 U/L (0-40); Albumin Level 4.6 g/dL (3.5-5.0); Alkaline Phosphatase 44 U/L (39-117); Anion Gap 12 (12-20); Aspartate Amino Transferase 53 U/L (5-37); Blood Urea Nitrogen 14 mg/dL (9-16); Calcium 9.2 mg/dL (8.4-10.2); Carbon Dioxide 28 mmol/L (22-29); Chloride 105 mmol/L (96-108); Cholesterol 142 mg/dL (<200); Estimated Glomerular Filt Rate > 60; HDL Cholesterol 37 mg/dL (>40); Potassium 4.2 mmol/L (3.3-5.1); Sodium 141 mmol/L (135-145); Total Protein 7.5 g/dL (6.5-8.0); Triglycerides 140 mg/dL (<150)
== END 2025-01-30 07:23 | disposition home or self-care (01) ==
LOC: HO.LAB 07:22
PROVIDERS: PCP Internal Medicine; Visit Provider Internal Medicine
DX: E11.9 Type 2 diabetes mellitus without complications (principal); E78.5 Hyperlipidemia, unspecified; R80.9 Proteinuria, unspecified
CPT/HCPCS: 36415; 80053; 80061; 82043; 82570

== ENCOUNTER 2025-03-12 08:16 | Outpatient (AMB) | payer OTHER, SELFPAY ==
[2025-03-12 08:34] VITALS: BP 140/90; PULSE 77; TEMP 36.7; O2SAT 98; BMI 31.8
--- NOTE | 2025-03-12 08:34 | A.OFFPC_ITS ---
Vital Signs 03/12/25 08:34 Height 5 ft 4 in Weight 185 lb BMI 31.8 BP 140/90 H Blood Pressure Location Lt brachial Position Sitting Pulse 77 Pulse Source Pulse Oximeter Temp 98.1 F Temp Source Temporal Artery Scan Pulse Oximetry (%) 98 Oxygen Delivery Method Room Air Intake Visit Reasons: pe Stock Feeder Required: No Accompanied by: Self / Same As Patient Allergies lisinopril Adverse Reaction (Severe, Verified 03/12/25 09:01) rash, cough, itchy throat sumatriptan Adverse Reaction (Intermediate, Verified 03/12/25 09:01) inadequate response Medication List - Last Reconciled 03/12/25 by Viji Chacon MD amlodipine 10 mg PO DAILY 90 days atorvastatin 10 mg PO DAILY 90 days blood sugar diagnostic (FreeStyle Lite Strips) As directed lancets (FreeStyle Lancets) As directed metformin ER 500 mg PO BID 90 days miscellaneous medical supply (Blood Pressure Cuff) As directed omeprazole 20 mg PO DAILY 90 days sumatriptan succinate 25 mg PO Q2-4H PRN 30 days Tobacco use date assessed: 12/18/24 Dental Screening Dental Screen Date: 12/18/24 Did you have a dental visit in the last 12 months?: Yes Did you have a dental problem in the last 6 months where you did not have access to dental care?: No Was dental information given to patient?: Patient has dentist HPI HPI Comments History of Present Illness Details The patient is a 54-year-old male presenting for an annual physical exam. The patient has a history of type 2 diabetes mellitus, managed with metformin 500 mg twice daily. His last HbA1c on December 18 was 7.4%, which is near the goal of 7.0%. A diabetic eye exam in November was negative for retinopathy. For hypertension, he is on amlodipine 10 mg. He has a known allergy to lisinopril, which caused a rash, cough, and itchy throat. Blood pressure elevated today and he did took his amlodipine. Blood pressure will be recheck in 3 weeks by nurse navigator. Regarding hyperlipidemia, his total cholesterol is 142 mg/dL and LDL is 77 mg/dL, slightly above the goal of 70 mg/dL. The patient has a history of migraines, which occur every two weeks, sometimes involving the eye and causing nausea and vomiting; he takes sumatriptan for these episodes but said it cause more headache the last time he use it. He will be referred to Neurology. He also takes omeprazole daily for acid reflux. His past surgical history is significant only for a hand surgery. For health maintenance, his last tetanus vaccine was in 2012. A Cologuard was ordered in 2022 but he did not did the test, and referrals for a colonoscopy were placed last year and again in November of this year, but he has not been contacted to schedule the procedure. Declines flu vaccine today. Will have PCV 20 today. Both of the patient's parents are . He has never smoked and is currently abstinent from alcohol, though he drank in the past. [facility] Medical History Essential hypertension Hyperlipidemia LDL goal <70 Elevated blood pressure reading in office with diagnosis of hypertension Diabetes mellitus Chronic GERD Surgical History History of hand surgery Family History Mother Alzheimer disease Osteoporosis Father Diabetes Social History Household Members: Spouse and Children Housing: House Alcohol intake: former Patient Tobacco Use Status: Never used Tobacco e-Cigarette/Vaping Use: Never Used Second Hand Smoke Exposure: No service: No Current occupational status: employed Current occupation: Maintenance Current occupational exposures/hazards: No Cognitive needs: No Hearing needs: No Vision needs: Yes Questionnaire PHQ-9 Over the last 2 weeks, how often have you been bothered by any of the following problems? 1. Little interest or pleasure in doing things: not at all 2. Feeling down, depressed, or hopeless: not at all 3. Trouble falling or staying asleep, or sleeping too much: not at all 4. Feeling tired or having little energy: several days 5. Poor appetite or overeating: not at all 6. Feeling bad about yourself - or that you are a failure or have let yourself or your family down: not at all 7. Trouble concentrating on things, such as reading the newspaper or watching television: not at all 8. Moving or speaking so slowly that other people could have noticed. Or the opposite - being so fidgety or restless that you have been moving around a lot more than usual: not at all 9. Thoughts that you would be better off or of hurting yourself in some way: not at all Total score: 1 Depression Screening Interpretation: Negative Depression Screening Done: Yes 05245 - PHQ-9 Billing: Yes Source: Developed by Drs. Stuart Walton, Amanda Mcwilliams, Marcel Mcmahon and colleagues, with an educational concepcion from [employer]. Thrive Questionnaire Date Thrive assessed: 12/18/24 I am a: Patient What is your living situation today?: I have a steady place to live Within the past 12 months, did the food you bought not last and you didn't have the money to get more?: Often true Within the past 12 months, did you worry whether your food would run out before you got money to buy more?: Sometimes True Do you have trouble paying for medicines?: No Do you have trouble getting transportation to medical appointments?: No Do you have trouble paying your heating and electricity bill?: No Do you have trouble taking care of your child, family member or friend?: No Do you have trouble with day-to-day activities such as bathing, preparing meals, shopping, managing finances, etc.?: No Are you currently unemployed and looking for a job?: No Are you interested in more education?: Yes Please select the resources that you would like help with: None Currently or been in a relationship where the following occur: No concerns reported THRIVE Score: 2 AUDIT C Alcohol Use Questionnaire (AUDIT-C) 1. How often do you have a drink containing alcohol?: Never 3. How often do you have six or more drinks on one occasion?: Never Total Score: 0 Score Reviewed/Action Taken: No YOLIS-7 AMB Questionnaire YOLIS-7 Date YOLIS - 7 assessed: 12/18/24 Feeling nervous, anxious, or on edge: 0 = Not at all Not being able to stop or control worryin = Not at all Worrying too much about different things: 0 = Not at all Trouble relaxin = Not at all Being so restless that it is hard to sit still: 0 = Not at all Becoming easily annoyed or irritable: 0 = Not at all Feeling afraid as if something awful might happen: 0 = Not at all Total YOLIS-7 score (0-4 normal; 5-9 mild; 10-14 moderate; 15-21 severe): 0 Source: Developed by Drs. Stuart Walton, Amanda Mcwilliams, Marcel Mcmahon and colleagues, with an educational concepcion from [employer]. YOLIS-7 Assessment Billing YOLIS-7 Assessment Tool: YOLIS-7 Assessment 42995 Review of Systems Const All systems reviewed & are unremarkable except as noted in HPI and below Card Denies chest pain at rest, Denies chest pain with activity, Denies edema, Denies irregular heart rhythm, Denies claudication, Denies dyspnea, Denies dyspnea on exertion, Denies orthopnea, Denies paroxysmal nocturnal dyspnea and Denies slow heart rate Resp Denies cough, Denies dyspnea and Denies dyspnea on exertion Physical exam (Primary Care) Vital Signs: Last Vital Signs Temp 98.1 F 03/12/25 08:34 Pulse 77 03/12/25 08:34 BP 140/90 H 03/12/25 08:34 Pulse Ox 98 03/12/25 08:34 Oxygen Delivery Method Room Air 03/12/25 08:34 BMI result Body Mass Index 31.8 BMI Assessment/Plan discussion: High BMI High, discussed plan: lifestyle, weight reduction, dietary and physical activity Tobacco/Smoking Status: Tobacco use Status Tobacco use date assessed 12/18/24 03/12/25 08:38 Patient Tobacco Use Status Never used Tobacco 03/12/25 08:38 e-Cigarette/Vaping Use Never Used 03/12/25 08:38 PHQ-9: PHQ-9 Score PHQ-9: Total score 1 03/12/25 09:05 Depression Screening Interpretation: Negative Thrive Assessment: Date of Thrive Assessment Date Thrive assessed 12/18/24 03/12/25 08:38 Currently or been in a relationship where the following occur: No concerns reported HENMT Head: Yes normal to inspection, Yes normocephalic and Yes atraumatic Ears: external ears normal Eyes General: appearance normal, both eyes and all related structures Eyelids: Yes eyelids normal Conjunctivae: conjunctivae normal Neck Neck: Yes normal visual inspection and Yes supple Resp Effort & Inspection: normal respiratory effort Auscultation: clear to auscultation bilaterally Cardio Jugular venous distension: no JVD Rate: regular rate Rhythm: regular rhythm Heart sounds: S1 normal heart sound present and S2 normal heart sound present GI Inspection: Yes normal to inspection Palpation (GI): Soft to palpation and nontender Auscultation: normal bowel sounds Skin General skin exam: no rashes or lesions noted Neuro General: no focal motor deficits Extrem General: Yes full ROM Psych Appearance: grossly normal Immunizations pneumoc 20-beverley conj-dip cr(PF) 0.5 mL IM syringe Performing Provider: Viji Chacon MD Performing Location: [facility] Administered by: Jenna Mendosa LPN on 03/12/25 09:31 Dose Route Admin Location Dispensed Lot Number Expiration Date [facility] [employer] 0.5 mL IM Left Deltoid 0.5 mL [id number] 01/22/26 1440-9668-93 [employer] /[employer]asty Total Dispensed Waste 0.5 mL 0 % VIS Given Date VIS Provided VIS Publication Date 03/12/25 Single Vaccine 24 Eligibility Eligibility Date Funding Source Not VFC Eligible 03/12/25 Private Boostrix Tdap 2.5 Lf unit-8 mcg-5 Lf/0.5 mL intramuscular syringe Performing Provider: Viji Chacon MD Performing Location: [facility] Administered by: Jenna Mendosa LPN on 03/12/25 09:31 Dose Route Admin Location Dispensed Lot Number Expiration Date [place] [employer] 0.5 mL IM Right Deltoid 0.5 mL [id number] 07/20/27 [id number] [employer] Total Dispensed Waste 0.5 mL 0 % VIS Given Date VIS Provided VIS Publication Date 03/12/25 Single Vaccine 20 Eligibility Eligibility Date Funding Source Not VFC Eligible 03/12/25 Private Coding Level of Care Code Est Pt Level 3 (14486) Est Pt Prev Care 40-64y(12614) Diagnoses Physical exam Z00.00 Headache R51.9 Type 2 diabetes mellitus without complication, without long-term current use of insulin E11.9 Diabetes mellitus complication status: without complication Diabetes mellitus long term care administrator insulin use: without long term care administrator use Diabetes mellitus type: type 2 Essential hypertension I10 Additional Codes PHQ-9 - 91497 - PHQ-9 Billing: Yes ([id number]) YOLIS-7 Assessment Billing - YOLIS-7 Assessment Tool: YOLIS-7 Assessment 63991 ([id number]) Time Spent (min) 35 Assessment & Plan Assessment & Plan (1) Physical exam: Code(s): Z00.00 - Encounter for general adult medical examination without abnormal findings Category: Medical (2) Headache: Code(s): R51.9 - Headache, unspecified Category: Medical (3) Diabetes mellitus: Code(s): E11.9 - Type 2 diabetes mellitus without complications Category: Medical Qualifiers: Diabetes mellitus complication status: without complication Diabetes mellitus long term care administrator insulin use: without usp use Diabetes mellitus type: type 2 Qualified Code(s): E11.9 - Type 2 diabetes mellitus without complications (4) Essential hypertension: Code(s): I10 - Essential (primary) hypertension Category: Medical Plan Plan 1. Physical exam Repeat in a year. Declines flu vaccine today. Continue diabetic eye exam yearly. Do colonoscopy. PCV 20 and Tdap vaccine administered today. 2. Hypertension The patient's blood pressure was elevated at 140/90 mmHg despite taking amlodipine 10 mg. Plan to have the patient recheck his blood pressure in three weeks. If it remains high, an additional medication will be considered. 3. Type 2 Diabetes Mellitus The patient's last HbA1c from December 18 was 7.4%, which is close to the goal of 7.0%. He will continue taking metformin 500 mg twice daily with diet. The HbA1c will not be rechecked today as it has been less than three months since the last test. 4. Migraines The patient will be referred to neurology for further evaluation of his migraines. He will continue to use sumatriptan as needed for acute episodes. Orders: Orders Pneumococcal 20 Immunization Today Z23 - Encounter for immunization TDaP Immunization Today Z23 - Encounter for immunization Referrals Neurology Referral R51.9 - Headache, unspecified Medications: New metformin ER 750 mg PO BID 180 tabs 1RF 90 days E11.9 - Type 2 diabetes mellitus without complications Discontinued metformin ER Discontinued Reason: Patient Completed Course 500 mg PO BID 90 days 180 tabs 0RF E11.9 - Type 2 diabetes mellitus without complications
== END 2025-03-12 09:34 | disposition home or self-care (01) ==
LOC: HO.HMCH 08:17
PROVIDERS: PCP Internal Medicine; Visit Provider Internal Medicine
DX: Z00.00 Encounter for general adult medical examination without abnormal findings (principal); R51.9 Headache, unspecified; E11.9 Type 2 diabetes mellitus without complications; I10 Essential (primary) hypertension; Z23 Encounter for immunization

== ENCOUNTER → 2025-03-12 08:16 | Outpatient (BNVA) | payer OTHER, SELFPAY | PROVIDERS: PCP Internal Medicine; Visit Provider Internal Medicine | DX: Z00.00 Encounter for general adult medical examination without abnormal findings (principal); G43.909 Migraine, unspecified, not intractable, without status migrainosus; E11.9 Type 2 diabetes mellitus without complications; Z79.84 Long term (current) use of oral hypoglycemic drugs; I10 Essential (primary) hypertension | CPT/HCPCS: 90471; 90472; 90677; 90715; 96127 ==